=== PATIENT | female | born 1945 | race Caucasian/White ===

== ENCOUNTER 2016-06-04 | Outpatient (CLI) | payer MEDICARE, OTHER | END 2016-06-04 06:06 | disposition short-term general hospital (02) | DX: R07.9 Chest pain, unspecified (principal) | CPT/HCPCS: A0425; A0427 ==

== ENCOUNTER 2016-06-25 09:50 | Outpatient (CLI) | payer MEDICARE, OTHER | END 2016-06-25 09:51 | disposition home or self-care (01) | DX: Z95.2 Presence of prosthetic heart valve (principal) ==

== ENCOUNTER 2016-07-10 09:31 | Outpatient (CLI) | payer MEDICARE, OTHER | END 2016-07-10 09:32 | disposition home or self-care (01) | DX: I48.1 Persistent atrial fibrillation (principal); I48.0 Paroxysmal atrial fibrillation ==

== ENCOUNTER 2016-07-15 08:56 | Outpatient (CLI) | payer MEDICARE, OTHER | END 2016-07-15 08:57 | disposition critical access hospital (66) | DX: R07.89 Other chest pain (principal) | CPT/HCPCS: A0425; A0427 ==

== ENCOUNTER 2016-07-15 09:06 | Emergency (ER) | payer MEDICARE, OTHER | END 2016-07-15 11:05 | disposition home or self-care (01) | DX: R07.89 Other chest pain (principal); M54.2 Cervicalgia; I10 Essential (primary) hypertension; I25.10 Atherosclerotic heart disease of native coronary artery without angina pectoris; Z95.2 Presence of prosthetic heart valve; Z79.01 Long term (current) use of anticoagulants; I25.2 Old myocardial infarction; Z95.5 Presence of coronary angioplasty implant and graft ==

== ENCOUNTER 2016-07-16 09:58 | Outpatient (CLI) | payer MEDICARE, OTHER | END 2016-07-16 09:59 | disposition home or self-care (01) | DX: I48.0 Paroxysmal atrial fibrillation (principal) ==

== ENCOUNTER 2016-07-23 08:07 | Outpatient (CLI) | payer MEDICARE, OTHER | END 2016-07-23 08:08 | disposition home or self-care (01) | DX: I48.0 Paroxysmal atrial fibrillation (principal) ==

== ENCOUNTER 2016-08-01 08:33 | Outpatient (CLI) | payer MEDICARE, OTHER | END 2016-08-01 08:34 | disposition home or self-care (01) | DX: I48.0 Paroxysmal atrial fibrillation (principal) ==

== ENCOUNTER 2016-08-08 08:30 | Outpatient (CLI) | payer MEDICARE, OTHER | END 2016-08-08 08:31 | disposition home or self-care (01) | DX: I48.0 Paroxysmal atrial fibrillation (principal) ==

== ENCOUNTER 2016-08-22 08:22 | Outpatient (CLI) | payer MEDICARE, OTHER | END 2016-08-22 08:23 | disposition home or self-care (01) | DX: I48.0 Paroxysmal atrial fibrillation (principal) ==

== ENCOUNTER 2016-09-27 13:02 | Outpatient (CLI) | payer MEDICARE, OTHER ==
[2016-09-27 18:54] LABS: BASOPHILS % (AUTO) 0.5 %; EOSINOPHILS % (AUTO) 0.3 %; HCT - HEMATOCRIT 36.3 % (37.0-47.0); HGB - HEMOGLOBIN 11.9 g/dL (12.0-16.0); LYMPHOCYTES # (AUTO) 0.9 10^3/uL (1.5-3.5); LYMPHOCYTES % (AUTO) 9.9 %; MEAN CORPUSCULAR HEMOGLOBIN 27.7 pg (27.0-31.0); MEAN CORPUSCULAR HGB CONC 32.8 g/dL (32.0-36.0); MEAN CORPUSCULAR VOLUME 84.6 fL (81.0-99.0); MEAN PLATELET VOLUME 8.8 fL (7.9-10.8); MONOCYTES # (AUTO) 0.6 10^3/uL (0.0-1.0); MONOCYTES % (AUTO) 7.3 %; NEUTROPHILS # (AUTO) 7.3 10^3/uL (1.5-6.6); NUCLEATED RED BLOOD CELLS AUTO 0.1 /100WBC; RED CELL DISTRIBUTION WIDTH 18.3 % (12.0-15.0); UNCORRECTED WHITE BLOOD COUNT 8.9 x10^3/uL; WHITE BLOOD COUNT 8.9 x10^3/uL (4.8-10.8)
[2016-09-27 19:15] LABS: HEMOGLOBIN A1C 0.52 g/dL
[2016-09-27 19:28] LABS: ALBUMIN/GLOBULIN RATIO 0.9 (1.0-2.2); BILIRUBIN,TOTAL 1.2 mg/dL (0.2-1.0); BUN - BLOOD UREA NITROGEN 23 mg/dL (6-20); CALCIUM 9.2 mg/dL (8.5-10.3); CARBON DIOXIDE - CO2 29 mmol/L (21-32); CHLORIDE 100 mmol/L (101-111); CHOL/HDL RATIO 2.7 (<4.4); CHOLESTEROL 182 mg/dL; GFR - MDRD 55 (>89); GLUCOSE 117 mg/dL (70-100); HDL CHOLESTEROL 68 mg/dL; LDL/HDL RATIO 1.5 (<4.4); POTASSIUM 3.6 mmol/L (3.5-5.0); SODIUM 138 mmol/L (135-145); TOTAL PROTEIN 7.5 g/dL (6.7-8.2); TRIGLYCERIDES 73 mg/dL; VLDL CHOLESTEROL 15 mg/dL
[2016-09-27 19:44] LABS: INR 1.1 (0.8-1.2); PT - PROTHROMBIN TIME 12.7 secs (9.9-12.6)
== END 2016-09-27 13:03 | disposition home or self-care (01) ==
LOC: LAB.WCP 13:02
PROVIDERS: ATTEND Family Medicine
DX: E78.5 Hyperlipidemia, unspecified (principal); I48.0 Paroxysmal atrial fibrillation; R73.01 Impaired fasting glucose; I10 Essential (primary) hypertension
CPT/HCPCS: 36415; 80053; 80061; 82043; 83036; 84443; 85025; 85610

== ENCOUNTER 2016-10-08 07:00 | Outpatient (CLI) | payer MEDICARE, OTHER | END 2016-10-08 07:01 | disposition home or self-care (01) | LOC: LAB.WCP 07:00 | PROVIDERS: ATTEND Family Medicine | DX: R73.01 Impaired fasting glucose (principal) | CPT/HCPCS: 82043 ==

== ENCOUNTER 2017-03-26 10:19 | Outpatient (CLI) | payer MEDICARE, OTHER ==
[2017-03-26 14:05] LABS: BASOPHILS % (AUTO) 0.6 %; EOSINOPHILS # (AUTO) 0.2 10^3/uL (0.0-0.7); EOSINOPHILS % (AUTO) 2.8 %; HCT - HEMATOCRIT 37.4 % (37.0-47.0); HGB - HEMOGLOBIN 12.9 g/dL (12.0-16.0); LYMPHOCYTES # (AUTO) 1.3 10^3/uL (1.5-3.5); LYMPHOCYTES % (AUTO) 22.2 %; MEAN CORPUSCULAR HEMOGLOBIN 30.9 pg (27.0-31.0); MEAN CORPUSCULAR HGB CONC 34.5 g/dL (32.0-36.0); MEAN CORPUSCULAR VOLUME 89.7 fL (81.0-99.0); MEAN PLATELET VOLUME 9.4 fL (7.9-10.8); MONOCYTES # (AUTO) 0.5 10^3/uL (0.0-1.0); MONOCYTES % (AUTO) 8.3 %; NEUTROPHILS % (AUTO) 66.1 %; RED BLOOD COUNT 4.17 10^6/uL (4.20-5.40); RED CELL DISTRIBUTION WIDTH 14.4 % (12.0-15.0); UNCORRECTED WHITE BLOOD COUNT 6.1 x10^3/uL; WHITE BLOOD COUNT 6.1 x10^3/uL (4.8-10.8)
[2017-03-26 14:15] LABS: ALBUMIN/GLOBULIN RATIO 1.1 (1.0-2.2); BILIRUBIN,TOTAL 0.8 mg/dL (0.2-1.0); CALCIUM 9.3 mg/dL (8.5-10.3); CREATININE 1.1 mg/dL (0.4-1.0); POTASSIUM 4.4 mmol/L (3.5-5.0); TOTAL PROTEIN 6.9 g/dL (6.7-8.2)
[2017-03-26 14:17] LABS: HEMOGLOBIN A1C 0.51 g/dL
== END 2017-03-26 10:20 | disposition home or self-care (01) ==
LOC: LAB.WCP 10:19
PROVIDERS: ATTEND Family Medicine
DX: R73.01 Impaired fasting glucose (principal); I25.10 Atherosclerotic heart disease of native coronary artery without angina pectoris
CPT/HCPCS: 36415; 80053; 83036; 85025

== ENCOUNTER 2017-08-12 10:42 | Outpatient (CLI) | payer MEDICARE, OTHER | END 2017-08-12 10:43 | disposition home or self-care (01) | LOC: LAB 10:42 | PROVIDERS: ATTEND Internal Medicine Cardiovascular Disease | DX: I10 Essential (primary) hypertension (principal) | CPT/HCPCS: 36415; 80048 ==

== ENCOUNTER 2017-09-30 10:29 | Outpatient (CLI) | payer MEDICARE, OTHER ==
[2017-09-30 12:59] LABS: HB2 TOTAL 14.9 g/dL; HEMOGLOBIN A1C 0.55 g/dL; HEMOGLOBIN A1C % 5.5 % (4.6-6.2)
[2017-09-30 13:03] LABS: CHOL/HDL RATIO 2.6 (<4.4); CHOLESTEROL 197 mg/dL; HDL CHOLESTEROL 75 mg/dL; LDL CHOLESTEROL,CALCULATED 103 mg/dL; LDL/HDL RATIO 1.4 (<4.4); VLDL CHOLESTEROL 19 mg/dL
== END 2017-09-30 10:30 ==
LOC: LAB.WCP 10:29
PROVIDERS: ATTEND Family Medicine
DX: E78.5 Hyperlipidemia, unspecified (principal); R73.01 Impaired fasting glucose
CPT/HCPCS: 36415; 80061; 83036; 83721

== ENCOUNTER 2018-04-18 09:50 | Outpatient (CLI) | payer MEDICARE, OTHER ==
[2018-04-18 13:29] LABS: BASOPHILS % (AUTO) 0.6 %; EOSINOPHILS # (AUTO) 0.2 10^3/uL (0.0-0.7); EOSINOPHILS % (AUTO) 2.5 %; HGB - HEMOGLOBIN 13.2 g/dL (12.0-16.0); LYMPHOCYTES # (AUTO) 1.3 10^3/uL (1.5-3.5); LYMPHOCYTES % (AUTO) 19.3 %; MEAN CORPUSCULAR HEMOGLOBIN 30.9 pg (27.0-31.0); MEAN CORPUSCULAR HGB CONC 34.1 g/dL (32.0-36.0); MEAN CORPUSCULAR VOLUME 90.8 fL (81.0-99.0); MEAN PLATELET VOLUME 9.7 fL (7.9-10.8); MONOCYTES # (AUTO) 0.5 10^3/uL (0.0-1.0); MONOCYTES % (AUTO) 8.2 %; NEUTROPHILS # (AUTO) 4.6 10^3/uL (1.5-6.6); NEUTROPHILS % (AUTO) 69.4 %; PLT - PLATELET COUNT 189 10^3/uL (130-450); RED BLOOD COUNT 4.27 10^6/uL (4.20-5.40); RED CELL DISTRIBUTION WIDTH 14.1 % (12.0-15.0); WHITE BLOOD COUNT 6.7 x10^3/uL (4.8-10.8)
[2018-04-18 14:28] LABS: ALBUMIN 3.9 g/dL (3.2-5.5); ALBUMIN/GLOBULIN RATIO 1.3 (1.0-2.2); ALKALINE PHOSPHATASE 98 IU/L (42-121); ALT ALANINE AMINOTRANSFERASE 20 IU/L (10-60); AST ASPARTATE AMINOTRANSFERASE 27 IU/L (10-42); BILIRUBIN,TOTAL 0.9 mg/dL (0.2-1.0); BUN - BLOOD UREA NITROGEN 34 mg/dL (6-20); CALCIUM 9.2 mg/dL (8.5-10.3); CARBON DIOXIDE - CO2 25 mmol/L (21-32); CHLORIDE 102 mmol/L (101-111); CHOL/HDL RATIO 2.3 (<4.4); CHOLESTEROL 159 mg/dL; CREATININE 0.5 mg/dL (0.4-1.0); GFR - MDRD 121 (>89); GLUCOSE 114 mg/dL (70-100); HDL CHOLESTEROL 68 mg/dL; LDL CHOLESTEROL,CALCULATED 76 mg/dL; LDL/HDL RATIO 1.1 (<4.4); SODIUM 137 mmol/L (135-145); TOTAL PROTEIN 6.9 g/dL (6.7-8.2); VLDL CHOLESTEROL 15 mg/dL
== END 2018-04-18 23:59 | disposition home or self-care (01) ==
LOC: LAB.WCP 09:50
PROVIDERS: ATTEND Family Medicine
DX: I10 Essential (primary) hypertension (principal)
CPT/HCPCS: 36415; 80053; 80061; 83721; 84443; 85025

== ENCOUNTER 2018-09-10 08:37 | Outpatient (CLI) | payer MEDICARE, OTHER ==
[2018-09-10] MEDS ORDERED: REGADENOSON 0.4 MG/5 ML SYRINGE IVP ONE ×2 (10:41→11:57)
[2018-09-10] MEDS ORDERED: AMINOPHYLLINE 250 MG/10 ML VIAL ONE (10:42)
--- NOTE | 2018-09-10 13:09 | CARDIAC PROCEDURE NOTE ---
DATE OF SERVICE: 09/10/2018 Physician: Shikha Adhikari MD, [facility] INDICATION: Chest pain. CARDIAC RISK FACTORS: Advanced age, postmenopausal status, hypertension, hyperlipidemia, family history of heart disease. Patient describes a history of "prior heart attack" and has coronary stents. PROCEDURE: The test was ordered as a Persantine stress test. I spoke to the ordering provider, Dr. Cheng, on 09/03/2018 and he indicated that Persantine was an error, and that he wanted a Lexiscan stress test. Therefore, a Lexiscan pharmaceutical stress test was performed per his verbal order, along with nuclear myocardial perfusion imaging. RESTING HEART RATE: 52. PEAK HEART RATE: 66. RESTING BLOOD PRESSURE: 150/65. PEAK BLOOD PRESSURE: 140/60. Lexiscan was infused per protocol. She had brief flushing, brief shortness of breath and then developed chest tightness and jaw pain (she said this was similar to before she had coronary stents). These symptoms resolved spontaneously in less than a minute. Patient was given oral caffeine after recovery. RESTING EKG: Sinus bradycardia, left atrial enlargement, LVH voltage with small inferior Q-waves. EKG AT PEAK: New ST segment depression with biphasic T waves in leads 2, 3, aVF, and V4 through V5. These changes returned to baseline after 5 minutes. SUMMARY 1. Abnormal resting EKG. 2. Patient did develop chest pain with jaw pain briefly with this pharmaceutical stress agent. 3. EKG changes are suggestive of ischemia with pharmaceutical stress. 4. Nuclear images reported separately. cc: Alcon Allison M.D. Adelso Cheng M.D. TD: 09/10/2018 12:55 [facility]
--- NOTE | 2018-09-11 08:15 | Nuclear Medicine Report ---
Reason: CHEST PAIN Procedure Date: 09/10/2018 Accession Number: [id number] / [id number] Procedure: NM - Myocardial Perfusion STR/RST CPT Code: FULL RESULT: EXAM: SINGLE-ISOTOPE PHARMACOLOGICAL STRESS TEST WITH REGADENOSON. SINGLE-ISOTOPE AND TWO-DAY REST/STRESS MYOCARDIAL PERFUSION SCANS WITH TOMOGRAPHIC IMAGING, QUANTITATIVE ANALYSIS, WALL MOTION ANALYSIS AND CALCULATION OF EJECTION FRACTION. EXAM DATE: 09/10/2018 01:32 PM. CLINICAL HISTORY: CHEST PAIN. COMPARISON: None available. TECHNIQUE: A pharmacological stress was performed with the infusion of 0.4 mg regadenoson per protocol. According to protocol, 10.9 mCi of Tc-99m sestamibi was injected for stress myocardial perfusion scan. Motion correction was applied when appropriate. The following day after the intravenous administration of 40.7 mCi of Tc-99m sestamibi, a rest myocardial perfusion scan was done with tomography. Motion correction was applied when appropriate. Gated tomographic images were obtained for wall motion analysis and computation of left ventricular ejection fraction. FINDINGS: There is a large, moderate to severe fixed defect in the anterolateral, lateral, and inferolateral secobar. There is a small mild fixed defect in the anteroseptal wall. No convincing significant reversible perfusion defects. Computer analysis. Summed stress score 15 Summed rest score 15 Summed difference score 0 Wall motion analysis demonstrates hypokinesis of the inferior wall near the base. The left ventricular end-diastolic volume is 169 cc. The left ventricular end-systolic volume is 89 cc. The left ventricular ejection fraction is calculated to be 48%. IMPRESSION: 1. Fixed defect involving the anterolateral, lateral, and inferolateral escobar. No convincing significant reversible perfusion defects. 2. Left ventricular ejection fraction of 48%. 3. Hypokinesis of the inferior wall near the base. 4. Based on computer analysis, severely abnormal study with no ischemia. Please correlate findings with stress ECG tracings and procedure notes. RADIA
== END 2018-09-10 08:38 | disposition home or self-care (01) ==
LOC: DI 08:37
PROVIDERS: ATTEND Internal Medicine Cardiovascular Disease
DX: R07.9 Chest pain, unspecified (principal); R94.31 Abnormal electrocardiogram [ECG] [EKG]; R94.39 Abnormal result of other cardiovascular function study; I10 Essential (primary) hypertension; E78.5 Hyperlipidemia, unspecified; Z82.49 Family history of ischemic heart disease and other diseases of the circulatory system; Z95.5 Presence of coronary angioplasty implant and graft
CPT/HCPCS: 78452; 93017; A9500; J2785

== ENCOUNTER 2018-11-27 09:54 | Outpatient (CLI) | payer MEDICARE, OTHER ==
[2018-11-27 12:53] LABS: BASOPHILS % (AUTO) 0.6 %; EOSINOPHILS # (AUTO) 0.2 10^3/uL (0.0-0.7); HGB - HEMOGLOBIN 12.3 g/dL (12.0-16.0); LYMPHOCYTES # (AUTO) 1.3 10^3/uL (1.5-3.5); LYMPHOCYTES % (AUTO) 20.5 %; MEAN CORPUSCULAR HEMOGLOBIN 30.2 pg (27.0-31.0); MEAN CORPUSCULAR HGB CONC 32.5 g/dL (32.0-36.0); MEAN CORPUSCULAR VOLUME 93.1 fL (81.0-99.0); MEAN PLATELET VOLUME 11.7 fL (7.9-10.8); MONOCYTES # (AUTO) 0.6 10^3/uL (0.0-1.0); MONOCYTES % (AUTO) 8.9 %; NEUTROPHILS # (AUTO) 4.2 10^3/uL (1.5-6.6); NEUTROPHILS % (AUTO) 66.7 %; PLT - PLATELET COUNT 190 10^3/uL (130-450); RED BLOOD COUNT 4.07 10^6/uL (4.20-5.40); RED CELL DISTRIBUTION WIDTH 13.6 % (12.0-15.0); WHITE BLOOD COUNT 6.3 x10^3/uL (4.8-10.8)
[2018-11-27 13:20] LABS: HB2 TOTAL 13.1 g/dL; HEMOGLOBIN A1C 0.51 g/dL; HEMOGLOBIN A1C % 5.7 % (4.6-6.2)
[2018-11-27 13:23] LABS: ALBUMIN/GLOBULIN RATIO 1.2 (1.0-2.2); ALKALINE PHOSPHATASE 85 IU/L (42-121); ALT ALANINE AMINOTRANSFERASE 18 IU/L (10-60); AST ASPARTATE AMINOTRANSFERASE 28 IU/L (10-42); BILIRUBIN,TOTAL 0.9 mg/dL (0.2-1.0); BUN - BLOOD UREA NITROGEN 32 mg/dL (6-20); CALCIUM 9.2 mg/dL (8.5-10.3); CARBON DIOXIDE - CO2 23 mmol/L (21-32); CHLORIDE 107 mmol/L (101-111); CHOL/HDL RATIO 2.8 (<4.4); CHOLESTEROL 191 mg/dL; CREATININE 1.3 mg/dL (0.4-1.0); GFR - MDRD 40 (>89); GLUCOSE 110 mg/dL (70-100); HDL CHOLESTEROL 69 mg/dL; LDL CHOLESTEROL,CALCULATED 108 mg/dL; LDL/HDL RATIO 1.6 (<4.4); SODIUM 139 mmol/L (135-145); TOTAL PROTEIN 7.4 g/dL (6.7-8.2); VLDL CHOLESTEROL 14 mg/dL
== END 2018-11-27 23:59 | disposition home or self-care (01) ==
LOC: LAB.WCP 09:54
PROVIDERS: ATTEND Family Medicine
DX: I10 Essential (primary) hypertension (principal); E78.5 Hyperlipidemia, unspecified; R73.01 Impaired fasting glucose
CPT/HCPCS: 36415; 80053; 80061; 83036; 83721; 84443; 85025

== ENCOUNTER 2018-12-04 09:04 | Outpatient (CLI) | payer MEDICARE, OTHER ==
--- NOTE | 2018-12-05 14:01 | XRAY Report ---
Reason: BILATERAL HIP PAIN Procedure Date: 12/04/2018 Accession Number: [id number] / [id number] Procedure: WCP - Hip BILAT CPT Code: FULL RESULT: EXAM: BILATERAL HIP RADIOGRAPHY EXAM DATE: 12/04/2018 09:39 AM. CLINICAL HISTORY: BILATERAL HIP PAIN. COMPARISON: None. TECHNIQUE: 2 views each. FINDINGS: Bones: No fractures or bone lesions. Sacrum appears intact. SI joints appear normal. Right Hip: Asymmetric moderate degenerative joint space narrowing with moderate marginal osteophyte of the femoral head and acetabulum. No appreciable subchondral sclerosis or collapse. Left Hip: Minor joint space narrowing and minor marginal osteophyte. Soft Tissues: Normal. No soft tissue swelling. IMPRESSION: Bilateral hip osteoarthritis worse on the right. No fracture appreciated. RADIA
== END 2018-12-04 23:59 | disposition home or self-care (01) ==
LOC: DI.WCP 09:04 → EDSTATUS 13:16 → DI.WCP 23:59
PROVIDERS: ATTEND Family Medicine
DX: M16.0 Bilateral primary osteoarthritis of hip (principal)
CPT/HCPCS: 73521

== ENCOUNTER 2018-12-23 11:27 | Outpatient (CLI) | payer MEDICARE, OTHER ==
[2018-12-23] MEDS ORDERED: IOVERSOL 320 50 ML VIAL ONE (11:44)
[2018-12-23] MEDS ORDERED: IOVERSOL 320 100 ML VIAL IVP ONE ×3 (11:44→16:38)
[2018-12-23] MEDS ORDERED: IOVERSOL 320 50 ML VIAL PO ONE (16:38)
--- NOTE | 2018-12-25 04:46 | CT Report ---
Reason: ABDOMINAL PAIN LUQ Procedure Date: 12/23/2018 Accession Number: [id number] / [id number] Procedure: CT - Abdomen/Pelvis W CPT Code: FULL RESULT: EXAM: CT ABDOMEN AND PELVIS EXAM DATE: 12/23/2018 01:06 PM. CLINICAL HISTORY: ABDOMINAL PAIN LUQ. COMPARISONS: None. TECHNIQUE: Routine helical CT imaging was performed through the abdomen and pelvis. IV contrast: OPTI 320 100ML. Enteric contrast: No. Reconstructions: Coronal and sagittal. In accordance with CT protocol optimization, one or more of the following dose reduction techniques were utilized for this exam: automated exposure control, adjustment of mA and/or KV based on patient size, or use of iterative reconstructive technique. FINDINGS: Lung Bases: The lung bases are clear. The heart is enlarged. Liver: Normal. No masses. Gallbladder/Bile Ducts: Unremarkable. Spleen: Normal. Pancreas: Normal. Adrenal Glands: Normal. Kidneys: Normal. No masses or hydronephrosis. There are a few small bilateral renal cysts. Peritoneal Cavity/Bowel: Normal. No free fluid, free air or adenopathy. No masses or acute inflammatory process. The appendix is well visualized and normal. Pelvic Organs: The uterus is atrophic. There are no adnexal masses. Vasculature: There is fusiform dilatation of the abdominal aorta. There are prominent atherosclerotic vascular calcifications. In the mid abdominal aorta there is mild fusiform dilatation at the level of the renal arteries. Maximal diameter is approximately 22 mm. In the infrarenal abdominal aorta just above the bifurcation there is fusiform dilatation of the aorta with a maximal diameter measuring 32 mm. Prominent atherosclerotic vascular patients extend into the iliac arteries. Bones: No significant abnormality. Other: None. IMPRESSION: 1. Cardiomegaly. 2. Advanced atherosclerotic vascular calcification with fusiform dilatation of the abdominal aorta at the level of the renal arteries and in the infrarenal region of the aorta. RADIA
== END 2018-12-23 11:28 | disposition home or self-care (01) ==
LOC: DI 11:27
PROVIDERS: ATTEND Family Medicine
DX: R10.12 Left upper quadrant pain (principal); I51.7 Cardiomegaly; I77.811 Abdominal aortic ectasia
CPT/HCPCS: 74177; Q9967

== ENCOUNTER 2019-02-03 11:28 | Emergency (ER) | payer MEDICARE, OTHER ==
[2019-02-03] MEDS ORDERED: PROCAINAMIDE 1,000 MG in SODIUM CHLORIDE 0.9% 240 ML IV STA (12:16)
[2019-02-03] MEDS ORDERED: METOPROLOL 5 MG/5 ML VIAL IVP STA (12:16)
--- NOTE | 2019-02-03 12:18 | ED Physician Documentation ---
PD HPI CHEST PAIN - Stated complaint Stated Complaint: HEART RACING - Chief complaint Chief Complaint: Cardiac - History obtained from History obtained from: Patient - History of Present Illness Timing - onset: Other (This is a 74-year-old woman with history of prosthetic aortic valve, bovine. Not anticoagulated. She says she has a history of A. fib but it has been very fleeting. Since yesterday morning she has had a sensation of irregular heartbeat and something going on her chest with decreased energy. There is no pedal edema, shortness of breath, calf pain, or chest pain.) Review of Systems Ten Systems: 10 systems reviewed and negative Constitutional: reports: Fatigue. denies: Fever, Chills Cardiac: reports: Palpitations. denies: Chest pain / pressure, Pedal edema, Calf pain Respiratory: denies: Dyspnea, Cough GI: denies: Abdominal Pain, Nausea PD PAST MEDICAL HISTORY - Past Medical History Past Medical History: Yes Cardiovascular: Hypertension, High cholesterol, Coronary artery disease, [place], Atrial fibrillation - Past Surgical History Past Surgical History: Yes Cardiovascular: Coronary stent, Valve replacement - Present Medications Home Medications: Ambulatory Orders Medication Instructions Recorded Confirmed Atorvastatin Calcium [Lipitor] 80 mg PO DAILY 11/06/13 02/03/19 Losartan [Cozaar] 25 mg PO DAILY 11/06/13 02/03/19 Amitriptyline [Elavil] 25 mg PO HS #30 tablet 07/15/16 02/03/19 Furosemide 40 mg PO DAILY 07/15/16 02/03/19 Potassium Chloride 20 meq PO DAILY 07/15/16 02/03/19 Aspirin 80 mg PO DAILY 02/03/19 02/03/19 Metoprolol Succinate [Toprol Xl] 50 mg PO DAILY 02/03/19 02/03/19 - Allergies Allergies/Adverse Reactions: Allergies Allergy/AdvReac Type Severity Reaction Status Date / Time No Known Drug Allergies Allergy Verified 11/06/13 01:49 - Social History Does the pt smoke?: No Smoking Status: Never smoker Does the pt drink ETOH?: No - Immunizations Immunizations are current?: Yes PD ED PE NORMAL - Vitals Vital signs reviewed: Yes - General General: Alert and oriented X 3, No acute distress - HEENT HEENT: PERRL, EOMI - Neck Neck: Supple, no meningeal sign, No bony TTP - Cardiac Cardiac: Other (Irregularly irregular without murmur) - Respiratory Respiratory: No respiratory distress, Clear bilaterally - Abdomen Abdomen: Soft, Non tender - Back Back: No CVA TTP, No spinal TTP - Derm Derm: Normal color, Warm and dry - Extremities Extremities: No edema, No calf tenderness / cord - Neuro Neuro: Alert and oriented X 3, Normal speech Results - Vitals Vitals: Vital Signs - 24 hr 02/03/19 02/03/19 02/03/19 11:37 12:11 12:42 Temperature 36.6 C Heart Rate 102 H 96 97 Respiratory 18 16 15 Rate Blood Pressure 130/102 H 153/97 H 136/83 H O2 Saturation 93 94 94 02/03/19 02/03/19 02/03/19 13:26 14:10 14:29 Temperature Heart Rate 87 86 51 L Respiratory 15 18 26 H Rate Blood Pressure 138/85 H 125/75 143/67 H O2 Saturation 98 100 96 02/03/19 02/03/19 02/03/19 14:34 14:38 14:42 Temperature Heart Rate 53 L 55 L 51 L Respiratory 19 19 18 Rate Blood Pressure 142/70 H 142/70 H 137/62 H O2 Saturation 99 100 100 Oxygen O2 Source Room air - EKG (time done) 1141 Rate: Rate (enter#) (105) Rhythm: Atrial fibrillation [place]: Normal QRS: Normal Ischemia: Other (Inferior and lateral Q waves, no ST elevation or depression. Computer is calling prolonged QT but it actually looks fairly short to me.) 1438 Rate: Rate (enter#) (52) Rhythm: NSR, LAE Intervals: Normal [place] QRS: LVH Ischemia: Q waves (inferior) Computer interpretation: Agree with computer - Labs Labs: Laboratory Tests 02/03/19 02/03/19 02/03/19 12:23 12:23 12:23 WBC 8.3 RBC 4.19 L Hgb 13.0 Hct 39.0 MCV 93.1 MCH 31.0 MCHC 33.3 RDW 14.0 Plt Count 200 MPV 10.8 Neut # (Auto) 6.5 Lymph # (Auto) 1.1 L [place] # (Auto) 0.4 Eos # (Auto) 0.1 Baso # (Auto) 0.0 Absolute Nucleated RBC 0.00 Nucleated RBC % 0.0 Sodium 140 Potassium 4.2 Chloride 106 Carbon Dioxide 24 Anion Gap 10.0 BUN 28 H Creatinine 1.1 H Estimated GFR (MDRD) 48 L Glucose 137 H Calcium 9.2 Total Bilirubin 0.9 AST 28 ALT 21 Alkaline Phosphatase 80 Troponin I High Sens 21.1 H* Total Protein 7.3 Albumin 3.9 Globulin 3.4 Albumin/Globulin Ratio 1.1 Lipase 41 TSH 02/03/19 02/03/19 12:23 14:28 WBC RBC Hgb Hct MCV MCH MCHC RDW Plt Count MPV Neut # (Auto) Lymph # (Auto) Yates # (Auto) Eos # (Auto) Baso # (Auto) Absolute Nucleated RBC Nucleated RBC % Sodium Potassium Chloride Carbon Dioxide Anion Gap BUN Creatinine Estimated GFR (MDRD) Glucose Calcium Total Bilirubin AST ALT Alkaline Phosphatase Troponin I High Sens 21.4 H* Total Protein Albumin Globulin Albumin/Globulin Ratio Lipase TSH 2.79 Procedures - Procedural sedation Sedation prep: Informed consent, Time out completed, Last meal (730am), PE performed, AHA 2 - mild disease Sedation medications: propofol (50mg IVP x1) Patient status during sedation: Responds to tactile, Vitals remained stable, Maintained airway, Recovered uneventfully Sedation recovery: Recovered uneventfully Time in sedation (Minutes): 10 - Cardioversion 1 Time of attempt: 14:30 Risks, benefits, alternatives explained to: Pt Prep: IV, O2, daycare assistant, Airway equip Meds: Propofol (50mg IVP x1) CS via: Pads, AP approach Sync: Biphasic (120j x1) Post cardioversion rhythm: NSR Performed by: ED MD PD MEDICAL DECISION MAKING - ED course ED course: 74-year-old woman with symptomatic atrial fibrillation since yesterday morning, less than 48 hours. Will trial medical management with IV beta-blockers and procainamide. This resulted in rate control but not rhythm control. She consented for electrical cardioversion and cardioverted on the first shock. Departure - Departure Disposition: 01 Home, Self Care Clinical Impression: Atrial fibrillation Qualifiers: Atrial fibrillation type: paroxysmal Qualified Code(s): I48.0 - Paroxysmal atrial fibrillation Condition: Good Record reviewed to determine appropriate education?: Yes Instructions: Atrial Fibrillation Dc Comments: Please copy chart to Adelso Cheng, cardiology at the [facility]. Follow-up with Dr. Cheng, next available appointment. Take the copies of the EKGs from before and after we shocked you with you. You can let him know that we trialed IV beta-blockers and a procainamide drip without cardioversion, but you were successfully cardioverted using biphasic 120 J with sedation. He may want to start you on anticoagulants. Take a baby aspirin a day until then. Discharge Date/Time: 02/03/19 15:26
[2019-02-03 12:38] LABS: BASOPHILS % (AUTO) 0.5 %; EOSINOPHILS # (AUTO) 0.1 10^3/uL (0.0-0.7); EOSINOPHILS % (AUTO) 1.3 %; LYMPHOCYTES # (AUTO) 1.1 10^3/uL (1.5-3.5); LYMPHOCYTES % (AUTO) 13.6 %; MEAN CORPUSCULAR HGB CONC 33.3 g/dL (32.0-36.0); MEAN CORPUSCULAR VOLUME 93.1 fL (81.0-99.0); MEAN PLATELET VOLUME 10.8 fL (7.9-10.8); MONOCYTES # (AUTO) 0.4 10^3/uL (0.0-1.0); MONOCYTES % (AUTO) 5.3 %; NEUTROPHILS # (AUTO) 6.5 10^3/uL (1.5-6.6); NEUTROPHILS % (AUTO) 79.1 %; PLT - PLATELET COUNT 200 10^3/uL (130-450); RED BLOOD COUNT 4.19 10^6/uL (4.20-5.40); WHITE BLOOD COUNT 8.3 x10^3/uL (4.8-10.8)
[2019-02-03 12:52] LABS: ALBUMIN 3.9 g/dL (3.2-5.5); ALBUMIN/GLOBULIN RATIO 1.1 (1.0-2.2); BILIRUBIN,TOTAL 0.9 mg/dL (0.2-1.0); CALCIUM 9.2 mg/dL (8.5-10.3); CREATININE 1.1 mg/dL (0.4-1.0); TOTAL PROTEIN 7.3 g/dL (6.7-8.2)
[2019-02-03] MEDS ORDERED: PROPOFOL 200 MG/20 ML VIAL IVP STA (14:08)
[2019-02-03 14:43] VITALS: BP 137/62
== END 2019-02-03 15:26 | disposition home or self-care (01) ==
LOC: ED 11:28
DX: I48.0 Paroxysmal atrial fibrillation (principal); Z95.2 Presence of prosthetic heart valve; I25.10 Atherosclerotic heart disease of native coronary artery without angina pectoris; Z95.5 Presence of coronary angioplasty implant and graft; I10 Essential (primary) hypertension; Z79.82 Long term (current) use of aspirin
CPT/HCPCS: 36415; 80053; 83690; 84443; 84484; 85025; 92960; 93005; 96365; 96375; 99152; 99284; 99285; J2690; 94770

== ENCOUNTER 2019-05-20 10:52 | Outpatient (CLI) | payer MEDICARE, OTHER ==
[2019-05-20 11:45] LABS: CREATININE 1.2 mg/dL (0.4-1.0)
== END 2019-05-20 10:53 | disposition home or self-care (01) ==
LOC: LAB 10:52
PROVIDERS: ATTEND Internal Medicine Cardiovascular Disease
DX: I10 Essential (primary) hypertension (principal)
CPT/HCPCS: 36415; 80048

== ENCOUNTER 2019-08-27 08:00 | Outpatient (CLI) | payer MEDICARE, OTHER ==
[2019-08-27 13:40] LABS: CALCIUM 9.1 mg/dL (8.5-10.3); CREATININE 1.2 mg/dL (0.4-1.0)
== END 2019-08-27 23:59 | disposition home or self-care (01) ==
LOC: LAB.WCP 08:00
PROVIDERS: ATTEND Internal Medicine Cardiovascular Disease
DX: I25.2 Old myocardial infarction (principal); Z95.2 Presence of prosthetic heart valve
CPT/HCPCS: 36415; 80048

== ENCOUNTER 2020-03-11 10:34 | Outpatient (CLI) | payer MEDICARE, OTHER ==
[2020-03-11 11:46] LABS: BUN - BLOOD UREA NITROGEN 33 mg/dL (6-20); CALCIUM 9.3 mg/dL (8.5-10.3); CARBON DIOXIDE - CO2 29 mmol/L (21-32); CHLORIDE 96 mmol/L (101-111); CHOL/HDL RATIO 2.6 (<4.4); CHOLESTEROL 163 mg/dL; CREATININE 1.4 mg/dL (0.4-1.0); GLUCOSE 130 mg/dL (70-100); HDL CHOLESTEROL 63 mg/dL; LDL CHOLESTEROL,CALCULATED 82 mg/dL; LDL/HDL RATIO 1.3 (<4.4); SODIUM 137 mmol/L (135-145); VLDL CHOLESTEROL 18 mg/dL
== END 2020-03-11 10:35 | disposition home or self-care (01) ==
LOC: LAB 10:34
PROVIDERS: ATTEND Internal Medicine Cardiovascular Disease
DX: I10 Essential (primary) hypertension (principal); I48.91 Unspecified atrial fibrillation
CPT/HCPCS: 36415; 80048; 80061; 83721

== ENCOUNTER 2020-04-25 16:45 | Outpatient (CLI) | payer MEDICARE, OTHER ==
[2020-04-25 18:33] LABS: BASOPHILS % (AUTO) 0.6 %; EOSINOPHILS # (AUTO) 0.2 10^3/uL (0.0-0.7); EOSINOPHILS % (AUTO) 2.5 %; HGB - HEMOGLOBIN 13.6 g/dL (12.0-16.0); LYMPHOCYTES # (AUTO) 1.4 10^3/uL (1.5-3.5); LYMPHOCYTES % (AUTO) 20.4 %; MEAN CORPUSCULAR HEMOGLOBIN 30.2 pg (27.0-31.0); MEAN CORPUSCULAR HGB CONC 32.4 g/dL (32.0-36.0); MEAN CORPUSCULAR VOLUME 93.3 fL (81.0-99.0); MEAN PLATELET VOLUME 11.4 fL (7.9-10.8); MONOCYTES # (AUTO) 0.5 10^3/uL (0.0-1.0); MONOCYTES % (AUTO) 6.9 %; NEUTROPHILS # (AUTO) 4.7 10^3/uL (1.5-6.6); NEUTROPHILS % (AUTO) 69.3 %; PLT - PLATELET COUNT 204 10^3/uL (130-450); RED CELL DISTRIBUTION WIDTH 13.7 % (12.0-15.0); WHITE BLOOD COUNT 6.8 x10^3/uL (4.8-10.8)
[2020-04-25 19:22] LABS: ALBUMIN 3.9 g/dL (3.2-5.5); ALBUMIN/GLOBULIN RATIO 1.1 (1.0-2.2); CALCIUM 9.4 mg/dL (8.5-10.3); CREATININE 1.5 mg/dL (0.4-1.0); TOTAL PROTEIN 7.5 g/dL (6.7-8.2)
[2020-04-25 20:09] LABS: HEMOGLOBIN A1c% 6.3 % (4.27-6.07)
== END 2020-04-25 16:46 | disposition home or self-care (01) ==
LOC: LAB.WCP 16:45
PROVIDERS: ATTEND Family Medicine
DX: E11.9 Type 2 diabetes mellitus without complications (principal)
CPT/HCPCS: 36415; 80053; 83036; 84443; 85025

== ENCOUNTER 2020-06-11 08:26 | Outpatient (CLI) | payer MEDICARE, OTHER ==
--- NOTE | 2020-06-11 12:18 | Ultrasound Report ---
PROCEDURE: Retroperitoneal Limited INDICATIONS: AAA TECHNIQUE: Real time scanning was performed of the aorta and iliac arteries, with image documentatio n. COMPARISON: Prior CT examinations, 12/23/2018, 11/27/2010 FINDINGS: Aorta: Proximal aortic diameter measures 2.5 x 2.2 cm. There is a mid abdominal aneurysm seen that measures 2.9 cm AP by 3.2 cm transversely. There is a distal abdominal aortic aneurysm seen that measures 4 7 m AP by 5 cm transversely. There i s thick mural thrombus seen that measures up to 1.9 cm. Iliac arteries: Right common iliac artery measures 1.2 x 1.1 cm. Left common iliac artery measures 1.4 x 1.2 cm. IMPRESSION: 2 areas of fusiform aneurysm seen involving the abdominal aorta, with the distal portion measuring up to 5 cm transversely and 4 cm AP. There is relatively prominent mural thrombus. When compared to the 2019 CT examination, the distal abdominal aortic aneurysm has slightly increased in size. Reviewed by: Arturo Smith MD on 06/11/2020 11:16 AM [facility] Approved by: Arturo Smith MD on 06/11/2020 11:16 AM [facility] Station ID: [id number]
== END 2020-06-11 08:27 | disposition home or self-care (01) ==
LOC: DI 08:26
PROVIDERS: ATTEND Family Medicine
DX: I71.4 Abdominal aortic aneurysm, without rupture (principal); I74.09 Other arterial embolism and thrombosis of abdominal aorta

== ENCOUNTER 2020-06-23 09:28 | Outpatient (CLI) | payer MEDICARE, OTHER ==
[2020-06-23 10:06] LABS: CHOL/HDL RATIO 2.7 (<4.4); CHOLESTEROL 165 mg/dL; HDL CHOLESTEROL 62 mg/dL; LDL CHOLESTEROL,CALCULATED 85 mg/dL; LDL/HDL RATIO 1.4 (<4.4); TRIGLYCERIDES 88 mg/dL; VLDL CHOLESTEROL 18 mg/dL
== END 2020-06-23 09:29 | disposition home or self-care (01) ==
LOC: LAB 09:28
PROVIDERS: ATTEND Internal Medicine Cardiovascular Disease
DX: I25.10 Atherosclerotic heart disease of native coronary artery without angina pectoris (principal)
CPT/HCPCS: 36415; 80061; 83721

== ENCOUNTER 2020-07-21 10:44 | Outpatient (CLI) | payer MEDICARE, OTHER ==
[2020-07-21 12:35] LABS: BASOPHILS # (AUTO) 0.1 10^3/uL (0.0-0.1); BASOPHILS % (AUTO) 0.7 %; EOSINOPHILS # (AUTO) 0.2 10^3/uL (0.0-0.7); EOSINOPHILS % (AUTO) 3.1 %; HCT - HEMATOCRIT 39.9 % (37.0-47.0); HGB - HEMOGLOBIN 13.1 g/dL (12.0-16.0); LYMPHOCYTES # (AUTO) 1.3 10^3/uL (1.5-3.5); MEAN CORPUSCULAR HEMOGLOBIN 31.2 pg (27.0-31.0); MEAN CORPUSCULAR HGB CONC 32.8 g/dL (32.0-36.0); MEAN PLATELET VOLUME 11.3 fL (7.9-10.8); MONOCYTES # (AUTO) 0.5 10^3/uL (0.0-1.0); MONOCYTES % (AUTO) 6.8 %; NEUTROPHILS # (AUTO) 5.1 10^3/uL (1.5-6.6); NEUTROPHILS % (AUTO) 71.3 %; PLT - PLATELET COUNT 197 10^3/uL (130-450); RED CELL DISTRIBUTION WIDTH 13.8 % (12.0-15.0); WHITE BLOOD COUNT 7.2 x10^3/uL (4.8-10.8)
[2020-07-21 12:37] LABS: CALCIUM 9.1 mg/dL (8.5-10.3); CREATININE 1.4 mg/dL (0.4-1.0); POTASSIUM 4.5 mmol/L (3.5-5.0)
[2020-07-21 12:38] LABS: ALBUMIN 3.8 g/dL (3.2-5.5); ALBUMIN/GLOBULIN RATIO 1.1 (1.0-2.2); TOTAL PROTEIN 7.4 g/dL (6.7-8.2)
[2020-07-21 13:37] LABS: ESTIMATED AVERAGE GLUCOSE 126 mg/dL (70-100)
== END 2020-07-21 10:45 | disposition home or self-care (01) ==
LOC: LAB 10:44
PROVIDERS: ATTEND Family Medicine
DX: E11.9 Type 2 diabetes mellitus without complications (principal)
CPT/HCPCS: 36415; 80053; 82043; 82570; 83036; 85025

== ENCOUNTER 2020-11-10 08:42 | Emergency (ER) | payer MEDICARE, OTHER ==
--- NOTE | 2020-11-10 09:34 | XRAY Report ---
PROCEDURE: Chest 1 View X-Ray INDICATIONS: chest pain TECHNIQUE: One view of the chest was acquired. COMPARISON: 07/15/2016 FINDINGS: Surgical changes and devices: Median sternotomy wires. Cardiac valve prosthesis. Lungs and pleura: No pleural effusions or pneumothorax. Cephalization of pulmonary vasculature and i nterstitial prominence concerning for CHF. Mediastinum: Mediastinal contours appear normal. Heart is enlarged Bones and chest wall: No suspicious bony lesions. Overlying soft tissues appear unremarkable. IMPRESSION: Cardiomegaly with cephalization of pulmonary vasculature and interstitial prominence concerning for C HF. Reviewed by: Winter Last MD, PhD on 11/10/2020 9:32 AM PDT Approved by: Winter Last MD, PhD on 11/10/2020 9:32 AM PDT Station ID: [id number]
[2020-11-10 09:51] LABS: BASOPHILS # (AUTO) 0.1 10^3/uL (0.0-0.1); BASOPHILS % (AUTO) 0.6 %; EOSINOPHILS # (AUTO) 0.3 10^3/uL (0.0-0.7); EOSINOPHILS % (AUTO) 3.3 %; HCT - HEMATOCRIT 34.6 % (37.0-47.0); HGB - HEMOGLOBIN 11.6 g/dL (12.0-16.0); LYMPHOCYTES # (AUTO) 1.1 10^3/uL (1.5-3.5); LYMPHOCYTES % (AUTO) 13.7 %; MEAN CORPUSCULAR HEMOGLOBIN 31.3 pg (27.0-31.0); MEAN CORPUSCULAR HGB CONC 33.5 g/dL (32.0-36.0); MEAN CORPUSCULAR VOLUME 93.3 fL (81.0-99.0); MEAN PLATELET VOLUME 9.9 fL (7.9-10.8); MONOCYTES # (AUTO) 0.5 10^3/uL (0.0-1.0); PLT - PLATELET COUNT 209 10^3/uL (130-450); RED BLOOD COUNT 3.71 10^6/uL (4.20-5.40); WHITE BLOOD COUNT 7.9 x10^3/uL (4.8-10.8)
[2020-11-10 10:04] LABS: ALBUMIN 3.5 g/dL (3.2-5.5); BILIRUBIN,TOTAL 1.4 mg/dL (0.2-1.0); CALCIUM 9.1 mg/dL (8.5-10.3); CREATININE 1.3 mg/dL (0.4-1.0); POTASSIUM 4.1 mmol/L (3.5-5.0)
--- NOTE | 2020-11-10 10:36 | ED Physician Documentation ---
PD HPI DYSPNEA - Stated complaint Stated Complaint: SOA - Chief complaint Chief Complaint: Resp - History obtained from History obtained from: Patient - Additional information Additional information: Patient with history of atrial fibrillation who sees Dr. Cheng comes to the emergency department chief complaint of worse shortness of breath than usual. Patient states that normally when she ambulates, and since having atrial fibrillation, she experiences some dyspnea that lasts for some seconds, but not more than 10 to 20 seconds. Patient states that over the last few days, she has noticed that her shortness of breath seems to be a little worse and that will last perhaps for several minutes. Patient states this is mainly with exertion, such as when she gets up to go the bathroom. Patient denies orthopnea. She is noticed a little more edema around her ankles. She is currently on Lasix 40 mg twice daily with the provision to double the dose if needed. Patient states she tried doubling the dose once a couple of days ago but that it did not help. She is now back to her normal dose. Patient denies chest pain. No fevers or chills. She has a cough in the morning because she feels "congested" when she wakes up. She denies any nausea or vomiting. No other complaints at this time. Review of Systems Ten Systems: 10 systems reviewed and negative Constitutional: reports: Reviewed and negative Eyes: reports: Reviewed and negative Ears: reports: Reviewed and negative Nose: reports: Reviewed and negative Throat: reports: Reviewed and negative Cardiac: reports: Reviewed and negative Respiratory: reports: Dyspnea, Cough GI: reports: Reviewed and negative : reports: Reviewed and negative Skin: reports: Reviewed and negative Musculoskeletal: reports: Reviewed and negative Neurologic: reports: Reviewed and negative Psychiatric: reports: Reviewed and negative Endocrine: reports: Reviewed and negative Immunocompromised: reports: Reviewed and negative PD PAST MEDICAL HISTORY - Past Medical History Past Medical History: Yes Cardiovascular: Hypertension, High cholesterol, Coronary artery disease, [place], Atrial fibrillation, Other Respiratory: Shortness of breath, Other GI: GERD, Chronic diarrhea : Other Other Past Medical History: AAA, decreased kidney and liver function, fatty liver - Past Surgical History Past Surgical History: Yes Cardiovascular: Coronary stent, Valve replacement - Present Medications Home Medications: Ambulatory Orders Medication Instructions Recorded Confirmed Atorvastatin Calcium [Lipitor] 80 mg PO DAILY 11/06/13 02/03/19 Losartan [Cozaar] 25 mg PO DAILY 11/06/13 02/03/19 Amitriptyline [Elavil] 25 mg PO HS #30 tablet 07/15/16 02/03/19 Furosemide 40 mg PO DAILY 07/15/16 02/03/19 Potassium Chloride 20 meq PO DAILY 07/15/16 02/03/19 Aspirin 80 mg PO DAILY 02/03/19 02/03/19 Metoprolol Succinate [Toprol Xl] 50 mg PO DAILY 02/03/19 02/03/19 - Allergies Allergies/Adverse Reactions: Allergies Allergy/AdvReac Type Severity Reaction Status Date / Time No Known Drug Allergies Allergy Verified 11/10/20 09:07 - Social History Does the pt smoke?: No Smoking Status: Former smoker Does the pt drink ETOH?: No ETOH Use: Wine Does the pt have substance abuse?: No - Immunizations Immunizations are current?: Yes PD ED PE NORMAL - Vitals Vital signs reviewed: Yes - General General: Alert and oriented X 3, No acute distress - HEENT HEENT: PERRL - Neck Neck: Supple, no meningeal sign - Cardiac Cardiac: RRR, No murmur - Respiratory Respiratory: No respiratory distress, Other (Rales bilateral bases.) - Abdomen Abdomen: Soft, Non tender, Non distended - Derm Derm: Normal color, Warm and dry, No rash - Extremities Extremities: No deformity, No calf tenderness / cord, Other (1+ pitting edema bilateral ankles and feet.) - Neuro Neuro: Alert and oriented X 3, angle shearer 2-12 intact, Normal speech - Psych Psych: Normal mood, Normal affect Results - Vitals Vitals: Vital Signs - 24 hr 11/10/20 11/10/20 09:02 11:07 Temperature 36.7 C 36.6 C Heart Rate 100 66 Respiratory 18 19 Rate Blood Pressure 149/74 H 123/85 H O2 Saturation 98 99 Oxygen O2 Source Room air - EKG (time done) 0950 Rate: Rate (enter#) (103) Rhythm: Atrial fibrillation [place]: Normal Intervals: Other (Nonspecific repolarization abnormality, Related) QRS: Normal Other comments: Other comments (Occasional PVC.) Compare to prior EKG: Old EKG unavailable Computer interpretation: Agree with computer - Labs Labs: Laboratory Tests 11/10/20 11/10/20 11/10/20 09:45 09:45 09:45 WBC 7.9 RBC 3.71 L Hgb 11.6 L Hct 34.6 L MCV 93.3 MCH 31.3 H MCHC 33.5 RDW 14.0 Plt Count 209 MPV 9.9 Neut # (Auto) 6.0 Lymph # (Auto) 1.1 L [place] # (Auto) 0.5 Eos # (Auto) 0.3 Baso # (Auto) 0.1 Absolute Nucleated RBC 0.00 Nucleated RBC % 0.0 Sodium 136 Potassium 4.1 Chloride 100 L Carbon Dioxide 25 Anion Gap 11.0 BUN 22 H Creatinine 1.3 H Estimated GFR (MDRD) 40 L Glucose 140 H Calcium 9.1 Total Bilirubin 1.4 H AST 34 ALT 24 Alkaline Phosphatase 91 B-Natriuretic Peptide 846 H Total Protein 7.0 Albumin 3.5 Globulin 3.5 Albumin/Globulin Ratio 1.0 Lipase 38 - Rads (name of study) cxr Radiology: Final report received, EMP read indepedently, See rad report (Vascular congestion, concerning for CHF) PD MEDICAL DECISION MAKING - ED course Complexity details: reviewed results, re-evaluated patient, considered differential, d/w patient ED course: The patient was worked up with laboratory studies, EKG, and chest x-ray. She was found to be in atrial fibrillation and showed signs of CHF on x-ray. She was given an extra dose of Lasix here in the emergency department. I discussed with the patient that we will put her on temporarily increased dosing regimen of Lasix and that after this, she should follow-up with her primary care physician Dr. Cheng. The patient was well-appearing and stable for discharge home. We have discussed the usual indications for return. Departure - Departure Disposition: 01 Home, Self Care Clinical Impression: Congestive heart failure Qualifiers: Heart failure type: unspecified Heart failure chronicity: acute on chronic Qualified Code(s): I50.9 - Heart failure, unspecified Condition: Stable Instructions: ED CHF General Comments: Your chest x-ray and labs indicate that you are having a little bit of fluid backing up into your lungs, as we discussed might be the case. This usually is the result of the heart not quite pumping the blood forward as strongly as it needs to and is a common scenario from time to time with atrial fibrillation. Generally, the episode resolves with some extra diuretic. We have given you an extra dose today, and you should go up on your Lasix/furosemide to 80 mg daily for the next 5 days. You should call Dr. Cheng's office this afternoon to set up an appointment to be seen within the next couple of weeks. In the meantime, please also follow-up with your primary care physician. Discharge Date/Time: 11/10/20 11:45
[2020-11-10] MEDS ORDERED: FUROSEMIDE 40 MG/4 ML VIAL IVP STA (10:41)
[2020-11-10 11:37] VITALS: BP 123/85
== END 2020-11-10 11:45 | disposition home or self-care (01) ==
LOC: ED 08:42
DX: I50.9 Heart failure, unspecified (principal); I48.91 Unspecified atrial fibrillation; Z87.891 Personal history of nicotine dependence
CPT/HCPCS: 36415; 80053; 83690; 83880; 85025; 93005; 96374; 99284

== ENCOUNTER 2020-12-14 08:00 | Outpatient (CLI) | payer MEDICARE, OTHER ==
[2020-12-14 17:56] LABS: BASOPHILS # (AUTO) 0.1 10^3/uL (0.0-0.1); BASOPHILS % (AUTO) 0.8 %; EOSINOPHILS # (AUTO) 0.2 10^3/uL (0.0-0.7); EOSINOPHILS % (AUTO) 2.5 %; HCT - HEMATOCRIT 40.9 % (37.0-47.0); HGB - HEMOGLOBIN 13.1 g/dL (12.0-16.0); LYMPHOCYTES # (AUTO) 1.3 10^3/uL (1.5-3.5); LYMPHOCYTES % (AUTO) 14.4 %; MEAN CORPUSCULAR VOLUME 96.9 fL (81.0-99.0); MEAN PLATELET VOLUME 11.5 fL (7.9-10.8); MONOCYTES # (AUTO) 0.6 10^3/uL (0.0-1.0); MONOCYTES % (AUTO) 6.2 %; NEUTROPHILS # (AUTO) 6.9 10^3/uL (1.5-6.6); NEUTROPHILS % (AUTO) 75.9 %; PLT - PLATELET COUNT 193 10^3/uL (130-450); RED BLOOD COUNT 4.22 10^6/uL (4.20-5.40); RED CELL DISTRIBUTION WIDTH 14.4 % (12.0-15.0); WHITE BLOOD COUNT 9.1 x10^3/uL (4.8-10.8)
[2020-12-14 18:21] LABS: ALBUMIN 3.9 g/dL (3.2-5.5); BILIRUBIN,TOTAL 1.5 mg/dL (0.2-1.0); CALCIUM 9.3 mg/dL (8.5-10.3); CREATININE 1.2 mg/dL (0.4-1.0); TOTAL PROTEIN 7.7 g/dL (6.7-8.2)
[2020-12-14 20:46] LABS: ESTIMATED AVERAGE GLUCOSE 128 mg/dL (70-100); HEMOGLOBIN A1c% 6.1 % (4.27-6.07)
== END 2020-12-14 23:59 | disposition home or self-care (01) ==
LOC: LAB.WCP 08:00
PROVIDERS: ATTEND Family Medicine
DX: E11.9 Type 2 diabetes mellitus without complications (principal); I50.9 Heart failure, unspecified
CPT/HCPCS: 36415; 80053; 83036; 83880; 85025

== ENCOUNTER 2021-01-04 10:07 | Outpatient (CLI) | payer MEDICARE, OTHER | END 2021-01-04 10:08 | disposition home or self-care (01) | LOC: DI 10:07 | PROVIDERS: ATTEND Family Medicine | DX: I11.0 Hypertensive heart disease with heart failure (principal); I50.9 Heart failure, unspecified; Z95.2 Presence of prosthetic heart valve; I34.0 Nonrheumatic mitral (valve) insufficiency | CPT/HCPCS: 93306 ==

== ENCOUNTER 2021-05-23 10:40 | Outpatient (CLI) | payer MEDICARE, OTHER ==
[2021-05-23 11:41] LABS: BASOPHILS # (AUTO) 0.1 10^3/uL (0.0-0.1); BASOPHILS % (AUTO) 0.6 %; EOSINOPHILS # (AUTO) 0.2 10^3/uL (0.0-0.7); EOSINOPHILS % (AUTO) 2.7 %; HCT - HEMATOCRIT 41.2 % (37.0-47.0); HGB - HEMOGLOBIN 13.7 g/dL (12.0-16.0); LYMPHOCYTES # (AUTO) 1.3 10^3/uL (1.5-3.5); LYMPHOCYTES % (AUTO) 16.5 %; MEAN CORPUSCULAR HEMOGLOBIN 30.9 pg (27.0-31.0); MEAN CORPUSCULAR HGB CONC 33.3 g/dL (32.0-36.0); MEAN PLATELET VOLUME 10.9 fL (7.9-10.8); MONOCYTES # (AUTO) 0.5 10^3/uL (0.0-1.0); MONOCYTES % (AUTO) 6.7 %; NEUTROPHILS # (AUTO) 5.9 10^3/uL (1.5-6.6); NEUTROPHILS % (AUTO) 73.4 %; PLT - PLATELET COUNT 187 10^3/uL (130-450); RED BLOOD COUNT 4.43 10^6/uL (4.20-5.40); RED CELL DISTRIBUTION WIDTH 13.3 % (12.0-15.0); WHITE BLOOD COUNT 8.1 x10^3/uL (4.8-10.8)
[2021-05-23 13:08] LABS: CREATININE,URINE 60.7 mg/dL; MICROALBUM/CREATININE RATIO,UR 136.7 ug/mg (<30.0); MICROALBUMIN,URINE 8.3 mg/dL (0-300.0)
[2021-05-23 13:19] LABS: ALBUMIN 3.8 g/dL (3.2-5.5); ALBUMIN/GLOBULIN RATIO 1.1 (1.0-2.2); ALKALINE PHOSPHATASE 90 IU/L (42-121); ALT ALANINE AMINOTRANSFERASE 18 IU/L (10-60); AST ASPARTATE AMINOTRANSFERASE 29 IU/L (10-42); BILIRUBIN,TOTAL 1.4 mg/dL (0.2-1.0); BUN - BLOOD UREA NITROGEN 32 mg/dL (6-20); CALCIUM 9.2 mg/dL (8.5-10.3); CARBON DIOXIDE - CO2 25 mmol/L (21-32); CHLORIDE 101 mmol/L (101-111); CHOL/HDL RATIO 2.5 (<4.4); CHOLESTEROL 165 mg/dL; CREATININE 1.4 mg/dL (0.4-1.0); GFR - MDRD 36 (>89); GLUCOSE 127 mg/dL (70-100); HDL CHOLESTEROL 67 mg/dL; LDL CHOLESTEROL,CALCULATED 81 mg/dL; LDL/HDL RATIO 1.2 (<4.4); POTASSIUM 3.7 mmol/L (3.5-5.0); SODIUM 138 mmol/L (135-145); TOTAL PROTEIN 7.3 g/dL (6.7-8.2); TRIGLYCERIDES 84 mg/dL; VLDL CHOLESTEROL 17 mg/dL
[2021-05-23 13:34] LABS: ESTIMATED AVERAGE GLUCOSE 131 mg/dL (70-100); HEMOGLOBIN A1c% 6.2 % (4.27-6.07)
== END 2021-05-23 10:41 | disposition home or self-care (01) ==
LOC: LAB.N 10:40
PROVIDERS: ATTEND Family Medicine
DX: E11.9 Type 2 diabetes mellitus without complications (principal)
CPT/HCPCS: 36415; 80053; 80061; 82043; 82570; 83036; 83721; 85025

== ENCOUNTER 2022-03-27 10:13 | Outpatient (CLI) | payer MEDICARE, OTHER ==
[2022-03-27 10:32] LABS: BASOPHILS % (AUTO) 0.5 %; EOSINOPHILS # (AUTO) 0.2 10^3/uL (0.0-0.7); EOSINOPHILS % (AUTO) 2.4 %; HCT - HEMATOCRIT 40.7 % (37.0-47.0); HGB - HEMOGLOBIN 13.3 g/dL (12.0-16.0); LYMPHOCYTES # (AUTO) 1.5 10^3/uL (1.5-3.5); LYMPHOCYTES % (AUTO) 19.3 %; MEAN CORPUSCULAR HEMOGLOBIN 30.3 pg (27.0-31.0); MEAN CORPUSCULAR HGB CONC 32.7 g/dL (32.0-36.0); MEAN CORPUSCULAR VOLUME 92.7 fL (81.0-99.0); MEAN PLATELET VOLUME 10.6 fL (7.9-10.8); MONOCYTES # (AUTO) 0.6 10^3/uL (0.0-1.0); MONOCYTES % (AUTO) 7.3 %; NEUTROPHILS # (AUTO) 5.3 10^3/uL (1.5-6.6); NEUTROPHILS % (AUTO) 70.2 %; PLT - PLATELET COUNT 201 10^3/uL (130-450); RED BLOOD COUNT 4.39 10^6/uL (4.20-5.40); RED CELL DISTRIBUTION WIDTH 13.9 % (12.0-15.0); WHITE BLOOD COUNT 7.6 x10^3/uL (4.8-10.8)
[2022-03-27 10:51] LABS: ALBUMIN 3.7 g/dL (3.2-5.5); ALKALINE PHOSPHATASE 97 IU/L (42-121); ALT ALANINE AMINOTRANSFERASE 18 IU/L (10-60); AST ASPARTATE AMINOTRANSFERASE 30 IU/L (10-42); BILIRUBIN,TOTAL 1.3 mg/dL (0.2-1.0); BUN - BLOOD UREA NITROGEN 29 mg/dL (6-20); CALCIUM 9.3 mg/dL (8.5-10.3); CARBON DIOXIDE - CO2 26 mmol/L (21-32); CHLORIDE 101 mmol/L (101-111); CHOL/HDL RATIO 2.4 (<4.4); CHOLESTEROL 157 mg/dL; CREATININE 1.3 mg/dL (0.4-1.0); GFR - MDRD 40 (>89); GLUCOSE 144 mg/dL (70-100); HDL CHOLESTEROL 65 mg/dL; LDL CHOLESTEROL,CALCULATED 78 mg/dL; LDL/HDL RATIO 1.2 (<4.4); POTASSIUM 4.3 mmol/L (3.5-5.0); SODIUM 136 mmol/L (135-145); TOTAL PROTEIN 7.4 g/dL (6.7-8.2); TRIGLYCERIDES 69 mg/dL; VLDL CHOLESTEROL 14 mg/dL
[2022-03-27 11:03] LABS: THYROID STIMULATING HORMONE 3.23 uIU/mL (0.34-5.60)
[2022-03-27 11:46] LABS: CREATININE,URINE 28.4 mg/dL; MICROALBUM/CREATININE RATIO,UR 52.8 ug/mg (<30.0); MICROALBUMIN,URINE 1.5 mg/dL (0-300.0)
[2022-03-27 12:32] LABS: ESTIMATED AVERAGE GLUCOSE 131 mg/dL (70-100); HEMOGLOBIN A1c% 6.2 % (4.27-6.07)
== END 2022-03-27 10:14 | disposition home or self-care (01) ==
LOC: LAB 10:13
PROVIDERS: ATTEND Internal Medicine
DX: E11.9 Type 2 diabetes mellitus without complications (principal); E78.5 Hyperlipidemia, unspecified; R41.3 Other amnesia; I48.0 Paroxysmal atrial fibrillation; I10 Essential (primary) hypertension
CPT/HCPCS: 36415; 80053; 80061; 82043; 82570; 82607; 83036; 83721; 84443; 85025

== ENCOUNTER 2022-03-30 14:07 | Outpatient (CLI) | payer MEDICARE, OTHER ==
--- NOTE | 2022-03-30 21:42 | XRAY Report ---
PROCEDURE: Lumbar Spine 2 View INDICATIONS: DEGENERATIVE JOINT DISEASE, ARTHRITIS TECHNIQUE: 3 views of the lumbar spine were acquired. COMPARISON: CT abdomen pelvis 12/23/2018. FINDINGS: Bones: 5 [id number] vertebrae are present. Left convexity curvature thoracolumbar spine center ed at T12-L1. Multilevel degenerative changes are present with disc height loss, endplate spurring, a nd facet arthropathy. Degenerative changes are greatest at L5-S1, severe. No vertebral body compression fractures. No suspicious bony lesions. Soft tissues: Overlying bowel gas pattern is normal. Vascular calcifications are present. IMPRESSION: Multilevel degenerative changes of the lumbar spine. Reviewed by: Elian Merino MD on 03/30/2022 9:41 PM PST Approved by: Elian Merino MD on 03/30/2022 9:41 PM PST Station ID: [id number]
--- NOTE | 2022-03-30 21:51 | XRAY Report ---
PROCEDURE: Hips 2V BILAT INDICATIONS: DEGENERATIVE JOINT DISEASE, ARTHRITIS TECHNIQUE: Frontal view of the pelvis, lateral views of both hips. COMPARISON: CT abdomen pelvis 12/23/2018. FINDINGS: Bones: No fractures or dislocations. No suspicious bony lesions. The visualized pelvic ring appear s intact. Severe degenerative changes of the right hip with severe joint space loss, spurring, subch ondral cystic change. Mild-moderate left hip degenerative changes also present. Soft tissues: No suspicious soft tissue calcifications or masses. IMPRESSION: Degenerative changes of both hips, right worse than left. Reviewed by: Elian Merino MD on 03/30/2022 9:50 PM PST Approved by: Elian Merino MD on 03/30/2022 9:50 PM PST Station ID: [id number]
== END 2022-03-30 14:08 | disposition home or self-care (01) ==
LOC: DI 14:07
PROVIDERS: ATTEND Internal Medicine
DX: M47.816 Spondylosis without myelopathy or radiculopathy, lumbar region (principal); M51.36 Other intervertebral disc degeneration, lumbar region; M51.37 Other intervertebral disc degeneration, lumbosacral region; M47.817 Spondylosis without myelopathy or radiculopathy, lumbosacral region; M16.0 Bilateral primary osteoarthritis of hip

== ENCOUNTER 2022-04-17 12:39 | Outpatient (CLI) | payer MEDICARE, OTHER ==
--- NOTE | 2022-04-17 15:30 | MRI Report ---
PROCEDURE: BRAIN WO INDICATIONS: MEMORY IMPAIRMENT TECHNIQUE: Noncontrast axial T1 spin echo, axial T2 fast spin echo, sagittal and axial FLAIR, coronal T2 fast sp in echo, axial gradient echo, axial diffusion and ADC through the brain. COMPARISON: None. FINDINGS: Image quality: Excellent. CSF Spaces: Basal cisterns are patent. No extra-axial fluid collections. Ventricles are normal in size and shape. Brain: No intracranial masses or hemorrhage. Rosales/white matter interface is normal. Brainstem appe ars normal. Diffusion-weighted images demonstrate no acute ischemic insult. 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 Normal intravascular flow voids are present. Skull and face: Calvarium has normal marrow signal. Orbits appear normal. Sinuses: Sinuses and mastoids are clear. IMPRESSION: 1. No acute intracranial process. 2. Moderate atrophy and chronic microvascular ischemic changes. Reviewed by: Sonja Macias MD on 04/17/2022 3:29 PM PST Approved by: Sonja Macias MD on 04/17/2022 3:29 PM [facility] Station ID: [id number]
== END 2022-04-17 12:40 | disposition home or self-care (01) ==
LOC: DI 12:39
PROVIDERS: ATTEND Internal Medicine
DX: R41.3 Other amnesia (principal); Z86.79 Personal history of other diseases of the circulatory system; I67.82 Cerebral ischemia; G31.89 Other specified degenerative diseases of nervous system

== ENCOUNTER 2022-10-12 10:09 | Outpatient (CLI) | payer MEDICARE, OTHER ==
[2022-10-12 10:28] LABS: CREATININE 1.4 mg/dL (0.4-1.0); POTASSIUM 3.8 mmol/L (3.5-5.0)
== END 2022-10-12 10:10 | disposition home or self-care (01) ==
LOC: LAB 10:09
PROVIDERS: ATTEND Internal Medicine Cardiovascular Disease
DX: I25.2 Old myocardial infarction (principal)
CPT/HCPCS: 36415; 80048

== ENCOUNTER 2022-11-09 09:54 | Outpatient (CLI) | payer MEDICARE, OTHER ==
[2022-11-09 10:15] LABS: CALCIUM 9.4 mg/dL (8.5-10.3); CREATININE 1.6 mg/dL (0.6-1.3); ESTIMATED AVERAGE GLUCOSE 123 mg/dL (70-100); HEMOGLOBIN A1c% 5.9 % (4.27-6.07); POTASSIUM 3.9 mmol/L (3.5-4.5)
== END 2022-11-09 09:55 | disposition home or self-care (01) ==
LOC: LAB 09:54
PROVIDERS: ATTEND Internal Medicine
DX: E11.9 Type 2 diabetes mellitus without complications (principal)
CPT/HCPCS: 36415; 80048; 83036

== ENCOUNTER 2022-11-17 11:46 | Outpatient (CLI) | payer MEDICARE, OTHER ==
--- NOTE | 2022-11-17 16:27 | Ultrasound Report ---
PROCEDURE: Retroperitoneal Limited INDICATIONS: AAA TECHNIQUE: Real-time scanning was performed of the retroperitoneal organs, with image documentation. COMPARISON: 06/11/2020 FINDINGS: The proximal aorta measures 2.5 x 2.8 cm (previously 2.5 x 2.2 cm). The mid aorta measures 3.5 x 3.8 cm (previously 2.9 x 3.2 cm). The distal aorta measures 5.2 x 5.0 cm (previously 4.7 x 5.0 cm). There is an eccentric mural thrombus of the distal aorta causing stenosis of the distal aorta of appr oximately 80%. Plaque is noted throughout the entire aorta. There are 2 areas of fusiform aneurysm in the mid and distal aorta. The mid and distal aorta demonstrate increased in size compared to the prior study. The right common iliac artery measures 0.8 x 1.0 cm. The left common iliac artery measures 0.7 x 1.2 cm. IMPRESSION: 1. 2 foci of fusiform dilatation of the mid and distal aorta, increased in size compared to the prior ultrasound on 06/11/2020. 2. Diffuse severe atherosclerotic calcifications. 3. 80% stenosis in the distal aorta. Reviewed by: Fredrick Camilo on 11/17/2022 4:25 PM PDT Approved by: Fredrick Camilo on 11/17/2022 4:25 PM PDT Station ID: [id number]
== END 2022-11-17 11:47 | disposition home or self-care (01) ==
LOC: DI 11:46
PROVIDERS: ATTEND Internal Medicine
DX: I71.40 Abdominal aortic aneurysm, without rupture, unspecified (principal); I70.0 Atherosclerosis of aorta; I35.0 Nonrheumatic aortic (valve) stenosis

== ENCOUNTER 2023-01-01 12:27 | Outpatient (CLI) | payer MEDICARE, OTHER ==
[2023-01-01 12:47] LABS: BASOPHILS % (AUTO) 0.5 %; EOSINOPHILS # (AUTO) 0.2 10^3/uL (0.0-0.7); EOSINOPHILS % (AUTO) 2.5 %; HCT - HEMATOCRIT 36.7 % (37.0-47.0); HGB - HEMOGLOBIN 12.1 g/dL (12.0-16.0); LYMPHOCYTES # (AUTO) 1.1 10^3/uL (1.5-3.5); LYMPHOCYTES % (AUTO) 13.5 %; MEAN CORPUSCULAR HEMOGLOBIN 31.5 pg (27.0-31.0); MEAN CORPUSCULAR VOLUME 95.6 fL (81.0-99.0); MEAN PLATELET VOLUME 10.7 fL (7.9-10.8); MONOCYTES # (AUTO) 0.4 10^3/uL (0.0-1.0); MONOCYTES % (AUTO) 4.1 %; NEUTROPHILS # (AUTO) 6.7 10^3/uL (1.5-6.6); NEUTROPHILS % (AUTO) 79.2 %; PLT - PLATELET COUNT 157 10^3/uL (130-450); RED BLOOD COUNT 3.84 10^6/uL (4.20-5.40); RED CELL DISTRIBUTION WIDTH 14.5 % (12.0-15.0); WHITE BLOOD COUNT 8.5 x10^3/uL (4.8-10.8)
[2023-01-01 13:19] LABS: CALCIUM 9.4 mg/dL (8.5-10.3); CREATININE 1.3 mg/dL (0.6-1.3)
[2023-01-01 13:23] LABS: INR 1.8 (0.8-1.2); PT - PROTHROMBIN TIME 19.1 secs (9.9-12.6)
== END 2023-01-01 12:28 | disposition home or self-care (01) ==
LOC: LAB 12:27
PROVIDERS: ATTEND Internal Medicine Cardiovascular Disease
DX: I48.0 Paroxysmal atrial fibrillation (principal)
CPT/HCPCS: 36415; 80048; 85025; 85610

== ENCOUNTER 2023-04-24 10:15 | Outpatient (CLI) | payer MEDICARE, OTHER ==
[2023-04-24 10:24] LABS: BASOPHILS % (AUTO) 0.5 %; EOSINOPHILS # (AUTO) 0.3 10^3/uL (0.0-0.7); EOSINOPHILS % (AUTO) 3.8 %; HCT - HEMATOCRIT 41.9 % (37.0-47.0); HGB - HEMOGLOBIN 13.3 g/dL (12.0-16.0); LYMPHOCYTES # (AUTO) 1.5 10^3/uL (1.5-3.5); LYMPHOCYTES % (AUTO) 19.6 %; MEAN CORPUSCULAR HEMOGLOBIN 30.3 pg (27.0-31.0); MEAN CORPUSCULAR HGB CONC 31.7 g/dL (32.0-36.0); MEAN CORPUSCULAR VOLUME 95.4 fL (81.0-99.0); MEAN PLATELET VOLUME 10.7 fL (7.9-10.8); MONOCYTES # (AUTO) 0.5 10^3/uL (0.0-1.0); NEUTROPHILS # (AUTO) 5.3 10^3/uL (1.5-6.6); NEUTROPHILS % (AUTO) 68.7 %; PLT - PLATELET COUNT 183 10^3/uL (130-450); RED BLOOD COUNT 4.39 10^6/uL (4.20-5.40); RED CELL DISTRIBUTION WIDTH 14.2 % (12.0-15.0); WHITE BLOOD COUNT 7.7 x10^3/uL (4.8-10.8)
[2023-04-24 10:34] LABS: INR 1.6 (0.8-1.2); PT - PROTHROMBIN TIME 17.3 secs (9.9-12.6)
[2023-04-24 10:51] LABS: CALCIUM 9.4 mg/dL (8.5-10.3); CREATININE 1.4 mg/dL (0.6-1.3); POTASSIUM 4.1 mmol/L (3.5-4.5)
== END 2023-04-24 10:16 | disposition home or self-care (01) ==
LOC: LAB 10:15
PROVIDERS: ATTEND Internal Medicine Cardiovascular Disease
DX: I25.10 Atherosclerotic heart disease of native coronary artery without angina pectoris (principal); Z95.2 Presence of prosthetic heart valve
CPT/HCPCS: 36415; 80048; 85025; 85610

== ENCOUNTER 2023-04-26 10:39 | Outpatient (CLI) | payer MEDICARE, OTHER ==
[2023-04-26 11:03] LABS: CHOL/HDL RATIO 2.6 (<4.4); CHOLESTEROL 154 mg/dL; HDL CHOLESTEROL 59 mg/dL; LDL CHOLESTEROL,CALCULATED 70 mg/dL; LDL/HDL RATIO 1.2 (<4.4); TRIGLYCERIDES 127 mg/dL (48-352); VLDL CHOLESTEROL 25 mg/dL
== END 2023-04-26 10:40 | disposition home or self-care (01) ==
LOC: LAB 10:39
PROVIDERS: ATTEND Internal Medicine Cardiovascular Disease
DX: I25.10 Atherosclerotic heart disease of native coronary artery without angina pectoris (principal)
CPT/HCPCS: 36415; 80061; 83721

== ENCOUNTER 2023-05-21 09:30 | Outpatient (CLI) | payer MEDICARE, OTHER ==
[2023-05-21 09:47] LABS: BASOPHILS # (AUTO) 0.1 10^3/uL (0.0-0.1); BASOPHILS % (AUTO) 0.7 %; EOSINOPHILS # (AUTO) 0.2 10^3/uL (0.0-0.7); EOSINOPHILS % (AUTO) 2.9 %; HGB - HEMOGLOBIN 12.9 g/dL (12.0-16.0); LYMPHOCYTES # (AUTO) 1.5 10^3/uL (1.5-3.5); LYMPHOCYTES % (AUTO) 21.1 %; MEAN CORPUSCULAR HEMOGLOBIN 30.1 pg (27.0-31.0); MEAN CORPUSCULAR HGB CONC 31.5 g/dL (32.0-36.0); MEAN CORPUSCULAR VOLUME 95.8 fL (81.0-99.0); MEAN PLATELET VOLUME 10.1 fL (7.9-10.8); MONOCYTES # (AUTO) 0.4 10^3/uL (0.0-1.0); MONOCYTES % (AUTO) 6.4 %; NEUTROPHILS # (AUTO) 4.7 10^3/uL (1.5-6.6); NEUTROPHILS % (AUTO) 68.5 %; PLT - PLATELET COUNT 226 10^3/uL (130-450); RED BLOOD COUNT 4.28 10^6/uL (4.20-5.40); RED CELL DISTRIBUTION WIDTH 14.2 % (12.0-15.0); WHITE BLOOD COUNT 6.9 x10^3/uL (4.8-10.8)
[2023-05-21 10:01] LABS: ALBUMIN 3.8 g/dL (3.2-5.5); ALKALINE PHOSPHATASE 106 IU/L (42-121); ALT ALANINE AMINOTRANSFERASE 14 IU/L (10-60); AST ASPARTATE AMINOTRANSFERASE 28 IU/L (10-42); BILIRUBIN,TOTAL 0.9 mg/dL (0.2-1.0); BUN - BLOOD UREA NITROGEN 42 mg/dL (6-20); CALCIUM 9.4 mg/dL (8.5-10.3); CARBON DIOXIDE - CO2 28 mmol/L (21-32); CHLORIDE 101 mmol/L (101-111); CHOL/HDL RATIO 2.6 (<4.4); CHOLESTEROL 153 mg/dL; CREATININE 1.7 mg/dL (0.6-1.3); GFR - MDRD 29 (>89); GLUCOSE 134 mg/dL (74-104); HDL CHOLESTEROL 59 mg/dL; LDL CHOLESTEROL,CALCULATED 70 mg/dL; LDL/HDL RATIO 1.2 (<4.4); POTASSIUM 4.4 mmol/L (3.5-4.5); SODIUM 136 mmol/L (135-145); TOTAL PROTEIN 7.5 g/dL (6.4-8.9); TRIGLYCERIDES 120 mg/dL (48-352); VLDL CHOLESTEROL 24 mg/dL
[2023-05-21 10:16] LABS: THYROID STIMULATING HORMONE 5.54 uIU/mL (0.34-5.60)
[2023-05-21 12:32] LABS: MICROALBUMIN,URINE 6.4 mg/dL
[2023-05-21 22:32] LABS: ESTIMATED AVERAGE GLUCOSE 128 mg/dL (70-100); HEMOGLOBIN A1c% 6.1 % (4.27-6.07)
== END 2023-05-21 09:31 | disposition home or self-care (01) ==
LOC: LAB 09:30
PROVIDERS: ATTEND Internal Medicine
DX: I50.9 Heart failure, unspecified (principal); I21.4 Non-ST elevation (NSTEMI) myocardial infarction; E11.9 Type 2 diabetes mellitus without complications; I48.0 Paroxysmal atrial fibrillation
CPT/HCPCS: 36415; 80053; 80061; 82043; 82570; 83036; 83721; 84443; 85025

== ENCOUNTER 2023-09-11 10:43 | Outpatient (CLI) | payer MEDICARE, OTHER ==
[2023-09-11 12:57] LABS: CALCIUM 9.8 mg/dL (8.5-10.3); CREATININE 2.2 mg/dL (0.6-1.3); POTASSIUM 4.5 mmol/L (3.5-4.5)
[2023-09-11 13:08] LABS: ESTIMATED AVERAGE GLUCOSE 131 mg/dL (70-100); HEMOGLOBIN A1c% 6.2 % (4.27-6.07)
== END 2023-09-11 10:44 | disposition home or self-care (01) ==
LOC: LAB 10:43
PROVIDERS: ATTEND Internal Medicine
DX: E11.9 Type 2 diabetes mellitus without complications (principal)
CPT/HCPCS: 36415; 80048; 83036

== ENCOUNTER 2023-09-24 14:23 | Outpatient (CLI) | payer MEDICARE, OTHER | END 2023-09-24 23:59 | disposition critical access hospital (66) | LOC: EMS 14:23 | DX: R06.02 Shortness of breath (principal); I48.91 Unspecified atrial fibrillation | CPT/HCPCS: A0425; A0429 ==

== ENCOUNTER 2023-09-24 14:43 | Emergency (ER) | payer MEDICARE, OTHER ==
--- NOTE | 2023-09-24 15:42 | XRAY Report ---
PROCEDURE: Chest 1V INDICATIONS: DYSPNEA TECHNIQUE: One view of the chest was acquired. COMPARISON: Chest radiographs 11/10/2020. FINDINGS: Surgical changes and devices: Sternotomy wires and prosthetic heart valve are noted. Lungs and pleura: Bilateral interstitial prominence is seen with hazy opacities. There is silhouetti ng of the left hemidiaphragm suspicious for pleural effusion and/or consolidation. No pneumothorax. Mediastinum: Cardiac silhouette is enlarged. Bones and chest wall: No suspicious bony lesions. Overlying soft tissues appear unremarkable. IMPRESSION: Bilateral interstitial prominence and diffuse hazy opacities are suspicious for pulmonary edema. Susp ected small left pleural effusion versus left basilar consolidation. Cardiomegaly. Reviewed by: Elian Portillo MD on 09/24/2023 3:41 PM PDT Approved by: Elian Portillo MD on 09/24/2023 3:41 PM PDT Station ID: [id number]
[2023-09-24 15:45] LABS: BASOPHILS % (AUTO) 0.5 %; EOSINOPHILS % (AUTO) 0.5 %; HCT - HEMATOCRIT 35.2 % (37.0-47.0); HGB - HEMOGLOBIN 11.7 g/dL (12.0-16.0); LYMPHOCYTES % (AUTO) 12.4 %; MEAN CORPUSCULAR HEMOGLOBIN 31.7 pg (27.0-31.0); MEAN CORPUSCULAR HGB CONC 33.2 g/dL (32.0-36.0); MEAN CORPUSCULAR VOLUME 95.4 fL (81.0-99.0); MEAN PLATELET VOLUME 9.7 fL (7.9-10.8); MONOCYTES # (AUTO) 0.4 10^3/uL (0.0-1.0); MONOCYTES % (AUTO) 4.8 %; NEUTROPHILS # (AUTO) 6.7 10^3/uL (1.5-6.6); NEUTROPHILS % (AUTO) 81.6 %; PLT - PLATELET COUNT 157 10^3/uL (130-450); RED BLOOD COUNT 3.69 10^6/uL (4.20-5.40); WHITE BLOOD COUNT 8.2 x10^3/uL (4.8-10.8)
[2023-09-24 15:55] LABS: INR 1.4 (0.8-1.2); PT - PROTHROMBIN TIME 14.7 secs (9.9-12.6)
--- NOTE | 2023-09-24 15:58 | ED Physician Documentation ---
PD HPI DYSPNEA - Stated complaint Stated Complaint: AFIB - Chief complaint Chief Complaint: Cardiac - History obtained from History obtained from: Patient, Family - Additional information Additional information: 78-year-old female with history of aortic stenosis status post valve replacement, A-fib with Watchman procedure, mild dementia, enf-[id number] diabetes presents by EMS from the walk-in clinic for shortness of breath. Patient has had shortness of breath with exertion, particularly in the last week. At the walk-in clinic she was noted to be in atrial fibrillation and for some reason even though she always has atrial fibrillation they called 911 for transport. On arrival patient is asymptomatic. When asked how the emergency department can help her with any concerns she says "feed me". at bedside states that patient was told at her last doctor's office that she has low kidney function (GFR 22). She is pending a nephrology referral. Because of her kidney function her Lasix was decreased. also states that patient had recent negative nuclear stress test through her cardiology office. Review of Systems Constitutional: denies: Fever, Chills, Myalgias Respiratory: reports: Dyspnea. denies: Cough, Wheezing GI: denies: Abdominal Pain, Nausea, Vomiting, Constipation, Diarrhea Skin: denies: Rash, Lesions, Abrasion (s) Musculoskeletal: denies: Neck pain, Back pain, Extremity pain, Extremity swelling PD PAST MEDICAL HISTORY - Past Medical History Past Medical History: Yes Cardiovascular: Hypertension, High cholesterol, Coronary artery disease, CT, Atrial fibrillation, Other Respiratory: Shortness of breath, Other Endocrine/Autoimmune: Type 2 diabetes GI: GERD, Chronic diarrhea : Other - Past Surgical History Past Surgical History: Yes Cardiovascular: Coronary stent, Valve replacement - Present Medications Home Medications: Ambulatory Orders Medication Instructions Recorded Confirmed Atorvastatin Calcium [Lipitor] 80 mg PO DAILY 11/06/13 02/03/19 Losartan [Cozaar] 25 mg PO DAILY 11/06/13 02/03/19 Amitriptyline [Elavil] 25 mg PO HS #30 tablet 07/15/16 02/03/19 Furosemide 40 mg PO DAILY 07/15/16 02/03/19 Potassium Chloride 20 meq PO DAILY 07/15/16 02/03/19 Aspirin 80 mg PO DAILY 02/03/19 02/03/19 Metoprolol Succinate [Toprol Xl] 50 mg PO DAILY 02/03/19 02/03/19 - Allergies Allergies/Adverse Reactions: Allergies Allergy/AdvReac Type Severity Reaction Status Date / Time No Known Drug Allergies Allergy Verified 09/24/23 14:49 - Social History Does the pt smoke?: No Smoking Status: Never smoker Does the pt drink ETOH?: No Does the pt have substance abuse?: No - Immunizations Immunizations are current?: Yes PD ED PE NORMAL - Vitals Vital signs reviewed: Yes - General General: Alert and oriented X 3, No acute distress, Well developed/nourished - Cardiac Cardiac: Strong equal pulses, Other (irregularly irregular) - Respiratory Respiratory: No respiratory distress, Other (Mild inspiratory crackles bilateral bases) - Abdomen Abdomen: Soft, Non tender, Non distended - Derm Derm: Normal color, Warm and dry, No rash - Extremities Extremities: No deformity, No tenderness to palpate, Normal ROM s pain, No edema - Neuro Neuro: Alert and oriented X 3, loss control consultant 2-12 intact, No motor deficit, Normal speech Results - Vitals Vitals: Vital Signs - 24 hr 09/24/23 09/24/23 14:49 16:53 Temperature 36.8 C 36.5 C Heart Rate 88 86 Respiratory 20 18 Rate Blood Pressure 132/57 H 130/60 O2 Saturation 98 100 Oxygen O2 Source Room air - Labs Labs: Laboratory Tests 09/24/23 09/24/23 09/24/23 15:40 15:40 15:40 WBC 8.2 RBC 3.69 L Hgb 11.7 L Hct 35.2 L MCV 95.4 MCH 31.7 H MCHC 33.2 RDW 15.0 Plt Count 157 MPV 9.7 Neut # (Auto) 6.7 H Lymph # (Auto) 1.0 L [place] # (Auto) 0.4 Eos # (Auto) 0.0 Baso # (Auto) 0.0 Absolute Nucleated RBC 0.00 Nucleated RBC % 0.0 PT 14.7 H INR 1.4 H Sodium 137 Potassium 5.0 H Chloride 105 Carbon Dioxide 27 Anion Gap 5.0 L BUN 36 H Creatinine 1.6 H Estimated GFR (MDRD) 31 L Glucose 197 H Calcium 9.1 Total Bilirubin 1.4 H AST 24 ALT 18 Alkaline Phosphatase 99 Total Protein 5.6 L Albumin 3.4 Globulin 2.2 Albumin/Globulin Ratio 1.5 PD Medical Decision Making - ED course Complexity details: reviewed results, re-evaluated patient, considered differential, d/w patient ED course: Well-appearing patient presenting with progressive dyspnea on exertion, recently adjusted her Lasix dose due to decreasing kidney function. Recent negative nuclear stress test. Patient saturating well on room air, she currently denies any complaints and is requesting food. Laboratory work and imaging ordered. Laboratory work shows elevated creatinine, however GFR is 36, improved from laboratory work from PCP. Chest x-ray shows mild pulmonary edema, particularly at the bases. Patient and counseled of results of labs and imaging. They are happy to know that GFR seems to be increasing. Patient was given a dose of IV Bumex in the emergency department and counseled to increase her Lasix from 20 mg daily to 40 mg daily. Recommended close follow-up with both nephrology and cardiology for further adjustments to her medications. Departure - Departure Disposition: 01 Home, Self Care Clinical Impression: Pulmonary edema Condition: Stable Instructions: Edema Pulmonary Comments: Your laboratory work show that your kidney percent (GFR) is 36 today. You did have some fluid in your lungs. I recommend increasing your furosemide from 20 mg to 40 mg daily. Please follow-up with your heart doctor and the kidney doctor as scheduled. Forms: PCP List Discharge Date/Time: 09/24/23 16:57
[2023-09-24 16:00] LABS: ALBUMIN 3.4 g/dL (3.2-5.5); ALBUMIN/GLOBULIN RATIO 1.5 (1.0-2.2); BILIRUBIN,TOTAL 1.4 mg/dL (0.2-1.0); CALCIUM 9.1 mg/dL (8.5-10.3); CREATININE 1.6 mg/dL (0.6-1.3); TOTAL PROTEIN 5.6 g/dL (6.4-8.9)
[2023-09-24] MEDS: BUMETANIDE 1 MG/4 ML VIAL IVP STA (16:36)
[2023-09-24 17:00] VITALS: BP 130/60; O2SAT 100
== END 2023-09-24 16:57 | disposition home or self-care (01) ==
LOC: EDUNIT# → ED 14:43
DX: J81.1 Chronic pulmonary edema (principal); I48.91 Unspecified atrial fibrillation; F03.90 Unspecified dementia, unspecified severity, without behavioral disturbance, psychotic disturbance, mood disturbance, and anxiety; E11.9 Type 2 diabetes mellitus without complications; Z79.84 Long term (current) use of oral hypoglycemic drugs; I10 Essential (primary) hypertension; E78.00 Pure hypercholesterolemia, unspecified; I25.10 Atherosclerotic heart disease of native coronary artery without angina pectoris; I25.2 Old myocardial infarction
CPT/HCPCS: 36415; 80053; 85025; 85610; 93005; 96374; 99284

== ENCOUNTER 2023-10-14 13:28 | Outpatient (CLI) | payer MEDICARE, OTHER ==
[2023-10-14 13:59] LABS: CALCIUM 9.4 mg/dL (8.5-10.3); CREATININE 1.6 mg/dL (0.6-1.3); PHOSPHORUS 3.6 mg/dL (2.5-5.0); POTASSIUM 4.5 mmol/L (3.5-4.5)
== END 2023-10-14 13:29 | disposition home or self-care (01) ==
LOC: LAB 13:28
PROVIDERS: ATTEND Internal Medicine
DX: I13.0 Hypertensive heart and chronic kidney disease with heart failure and stage 1 through stage 4 chronic kidney disease, or unspecified chronic kidney disease (principal); I50.9 Heart failure, unspecified; N18.4 Chronic kidney disease, stage 4 (severe)
CPT/HCPCS: 36415; 80048; 82306; 83880; 83970; 84100

== ENCOUNTER 2023-12-12 10:09 | Emergency (ER) | payer MEDICARE, OTHER ==
--- NOTE | 2023-12-12 10:37 | ED Physician Documentation ---
PD HPI ABD PAIN - Stated complaint Stated Complaint: SOA,MEMORY LOSS,GEN WEAKNESS - Chief complaint Chief Complaint: Cardiac - History obtained from History obtained from: Patient, Family - Additional information Additional information: This is a andre 78-year-old woman who presents accompanied by her for the evaluation of subacute to chronic mental status issues and also subacute to chronic dyspnea. She has a history of A-fib with a watchman in place, prosthetic valve replacement, and was a remote smoker. Much of the history is from the due to her confusion. He notes that for maybe 6 months she has had memory difficulties. They have discussed it with the primary care physician and sounds like they are planning on neurology referral but not yet completed. He says she has been complaining of lower abdominal pain and having coughing fits. PD PAST MEDICAL HISTORY - Past Medical History Past Medical History: Yes Cardiovascular: Hypertension, High cholesterol, Coronary artery disease, [place], Atrial fibrillation, Other Respiratory: Shortness of breath, Other Endocrine/Autoimmune: Type 2 diabetes GI: GERD, Chronic diarrhea : Other - Past Surgical History Past Surgical History: Yes Cardiovascular: Coronary stent, Valve replacement - Present Medications Home Medications: Ambulatory Orders Medication Instructions Recorded Confirmed Atorvastatin Calcium [Lipitor] 80 mg PO DAILY 11/06/13 12/12/23 Furosemide 40 mg PO DAILY 07/15/16 12/12/23 Potassium Chloride 10 meq PO DAILY 07/15/16 12/12/23 Aspirin 80 mg PO DAILY 02/03/19 12/12/23 Metoprolol Succinate [Toprol Xl] 50 mg PO DAILY 02/03/19 12/12/23 Empagliflozin [Jardiance] 12.5 mg PO DAILY 12/12/23 12/12/23 Escitalopram Oxalate 5 mg PO DAILY 12/12/23 12/12/23 Memantine [Namenda] 10 mg PO BID 12/12/23 12/12/23 Spironolactone [Aldactone] 25 mg PO DAILY 12/12/23 12/12/23 - Allergies Allergies/Adverse Reactions: Allergies Allergy/AdvReac Type Severity Reaction Status Date / Time No Known Drug Allergies Allergy Verified 12/12/23 10:29 - Social History Does the pt smoke?: No Smoking Status: Never smoker Does the pt drink ETOH?: No Does the pt have substance abuse?: No - Immunizations Immunizations are current?: Yes - POLST Patient has POLST: No PD ED PE NORMAL - Vitals Vital signs reviewed: Yes - General General: Other (She is alert and oriented to person. She knows she is in the hospital but cannot name what town the hospital is in, nor to what town she lives in. She is able to come up with the year but not the president.) - HEENT HEENT: PERRL, EOMI, Other (Poor dentition) - Neck Neck: Supple, no meningeal sign, No bony TTP - Cardiac Cardiac: Other (Irregularly irregular without murmur) - Respiratory Respiratory: Other (Mild tachypnea with mild expiratory wheezes, no clear focal findings.) - Abdomen Abdomen: Normal bowel sounds, Soft, Non tender - Neuro Eye Opening: Spontaneous Motor: Obeys Commands Verbal: Confused GCS Score: 14 Results - Vitals Vitals: Vital Signs - 24 hr 12/12/23 12/12/23 12/12/23 10:23 10:49 11:06 Temperature 35.6 C L Heart Rate 95 89 Respiratory 27 H 22 Rate Blood Pressure 117/73 Blood Pressure 116/103 H [Right] O2 Saturation 100 12/12/23 12/12/23 12/12/23 12:13 12:30 13:00 Temperature Heart Rate 96 93 98 Respiratory 25 H 27 H 26 H Rate Blood Pressure 111/50 L 122/108 H 98/79 Blood Pressure [Right] O2 Saturation 92 94 98 12/12/23 12/12/23 12/12/23 13:30 14:00 14:30 Temperature Heart Rate 106 H 102 H 96 Respiratory 27 H 24 28 H Rate Blood Pressure 122/66 117/67 101/52 L Blood Pressure [Right] O2 Saturation 97 96 95 12/12/23 12/12/23 12/12/23 15:00 15:30 16:00 Temperature Heart Rate 104 H 107 H 97 Respiratory 26 H 25 H 26 H Rate Blood Pressure 100/66 106/53 L 103/68 Blood Pressure [Right] O2 Saturation 94 96 93 12/12/23 12/12/23 12/12/23 16:30 17:00 17:30 Temperature 36.4 C L Heart Rate 95 97 94 Respiratory 24 27 H 20 Rate Blood Pressure 117/50 L 102/52 L 103/67 Blood Pressure [Right] O2 Saturation 94 95 96 Oxygen O2 Source Room air - EKG (time done) 1020 EKG releavant findings:: EKG personally interpreted by author of this note. Relevant findings are: Rate: Rate (enter#) (94) Rhythm: Atrial fibrillation Intervals: RBBB Ischemia: Normal ST segments - Labs Labs: Laboratory Tests 12/12/23 12/12/23 12/12/23 10:21 10:21 11:44 WBC 10.9 H RBC 4.47 Hgb 13.2 Hct 43.3 MCV 96.9 MCH 29.5 MCHC 30.5 L RDW 16.6 H Plt Count 145 MPV 10.9 H Neut # (Auto) 9.1 H Lymph # (Auto) 1.2 L [place] # (Auto) 0.6 Eos # (Auto) 0.0 Baso # (Auto) 0.0 Absolute Nucleated RBC 0.03 Nucleated RBC % 0.3 PT INR Sodium 130 L Potassium 6.0 H* Chloride 99 L Carbon Dioxide 16 L Anion Gap 15.0 H BUN 60 H Creatinine 2.2 H Estimated GFR (MDRD) 22 L Glucose 167 H Calcium 9.7 Magnesium 2.6 H Total Bilirubin 1.7 H AST 128 H ALT 103 H Alkaline Phosphatase 133 H Troponin I High Sens 107.6 H* B-Natriuretic Peptide Total Protein 7.5 Albumin 3.7 Globulin 3.8 Albumin/Globulin Ratio 1.0 Folate 43.3 12/12/23 12/12/23 12/12/23 11:44 11:44 14:05 WBC RBC Hgb Hct MCV MCH MCHC RDW Plt Count MPV Neut # (Auto) Lymph # (Auto) [place] # (Auto) Eos # (Auto) Baso # (Auto) Absolute Nucleated RBC Nucleated RBC % PT 20.6 H INR 2.0 H Sodium 135 Potassium 5.2 H Chloride 103 Carbon Dioxide 19 L Anion Gap 13.0 BUN 61 H Creatinine 2.1 H Estimated GFR (MDRD) 23 L Glucose 120 H Calcium 9.5 Magnesium Total Bilirubin AST ALT Alkaline Phosphatase Troponin I High Sens 104.5 H* B-Natriuretic Peptide 2206 H Total Protein Albumin Globulin Albumin/Globulin Ratio Folate - Rads (name of study) 1v cxr Relevant Findings:: Final report received (CHF), EMP independent interpretation of test PD Medical Decision Making - ED course ED course: 78-year-old woman presents with chronic complaints of dyspnea and confusion. Unfortunately her examination is most consistent with dementia with poor recall. It looks like she did have an MRI of her brain done in April of last year for an indication of memory impairment which did show at that time, moderate atrophy and chronic microvascular ischemic changes. It sounds like since then she has progressed. She is wheezy and probably use a breathing treatment and a chest x-ray. I will image her head but low pretest probability for acute findings necessitating intervention. is also noting lower abdominal pain for 2 weeks for which we will image her abdomen as well. I set expec tations that if this is dementia it would likely be progressive and social work consultation was offered and accepted. Subsequently she was identified on x-ray as having CHF/pulmonary edema and altho ugh she has a relatively normal CBC, her metabolic panel was notable for signs of hepatic congestion, acute renal failure, and hyperkalemia. It will be difficult to treat the combination of CHF and TERA with hyperkalemia, but given her dyspnea she was administered some Lasix and Lokelma. Given lack of cardiology and nephrology consultative abilities available here we did reach out to [place] where she had her prior aortic bovine valve and watchman procedures for likely transfer. CT of the abdomen and pelvis which was already ordered was changed to without contrast Spoke with Dr. Ferrera, cardiology in [place] at 12:33 PM and we discussed the findings and she recommends starting a dobutamine drip. She does note that this may make her more tachycardic and we discussed loading her with digoxin but she wants to hold off given her electrolyte abnormalities. Subsequently told by the transfer center I should hear from hospitalist. Presumptively accepted to [place] by Dr. Rojas at 1:15 PM pending bed availability. His CMP is - Critical Care Time(min): 42 Time Includes: Direct patient care, Review records, Reassess patient, Document care, Coordinate care, Medical consult, Family consult for tx dec Data interpretation: Labs, Pulse ox Procedures included in critical care time: Peripheral IV Procedures excluded from critical care time: EKG Departure - Departure Disposition: 02 Transfer Acute Care Hosp Clinical Impression: TERA (acute kidney injury), Hyperkalemia Atrial fibrillation Qualifiers: Atrial fibrillation type: unspecified Qualified Code(s): I48.91 - Unspecified atrial fibrillation Pulmonary edema Qualifiers: Chronicity: acute Qualified Code(s): J81.0 - Acute pulmonary edema Condition: Serious Forms: PCP List Discharge Date/Time: 12/12/23 17:49
[2023-12-12 10:45] LABS: BASOPHILS % (AUTO) 0.2 %; HCT - HEMATOCRIT 43.3 % (37.0-47.0); HGB - HEMOGLOBIN 13.2 g/dL (12.0-16.0); LYMPHOCYTES # (AUTO) 1.2 10^3/uL (1.5-3.5); MEAN CORPUSCULAR HEMOGLOBIN 29.5 pg (27.0-31.0); MEAN CORPUSCULAR HGB CONC 30.5 g/dL (32.0-36.0); MEAN CORPUSCULAR VOLUME 96.9 fL (81.0-99.0); MEAN PLATELET VOLUME 10.9 fL (7.9-10.8); MONOCYTES # (AUTO) 0.6 10^3/uL (0.0-1.0); MONOCYTES % (AUTO) 5.2 %; NEUTROPHILS # (AUTO) 9.1 10^3/uL (1.5-6.6); NRBC ABSOLUTE COUNT (AUTO) 0.03 x10^3/uL; NUCLEATED RED BLOOD CELLS AUTO 0.3 /100WBC; PLT - PLATELET COUNT 145 10^3/uL (130-450); RED BLOOD COUNT 4.47 10^6/uL (4.20-5.40); RED CELL DISTRIBUTION WIDTH 16.6 % (12.0-15.0); WHITE BLOOD COUNT 10.9 x10^3/uL (4.8-10.8)
--- NOTE | 2023-12-12 10:51 | XRAY Report ---
PROCEDURE: Chest 1V INDICATIONS: dyspnea TECHNIQUE: One view of the chest was acquired. COMPARISON: 09/24/2023. FINDINGS: Surgical changes and devices: CABG. Lungs and pleura: Pulmonary edema. Probable minimal pleural fluid bilaterally. Patchy bibasilar atel ectasis. Mediastinum: Mediastinal contours appear normal. Cardiomegaly. Bones and chest wall: No suspicious bony lesions. Overlying soft tissues appear unremarkable. IMPRESSION: Congestive heart failure exacerbation. Reviewed by: Chris Deluca MD on 12/12/2023 10:49 AM PDT Approved by: Chris Deluca MD on 12/12/2023 10:49 AM PDT Station ID: [id number]
[2023-12-12 10:53] LABS: MAGNESIUM 2.6 mg/dL (1.7-2.3)
[2023-12-12] MEDS: IPRATROPIUM/ALBUTEROL 3 ML NEB INH STA (11:06)
[2023-12-12 11:08] LABS: ALBUMIN 3.7 g/dL (3.2-5.5); BILIRUBIN,TOTAL 1.7 mg/dL (0.2-1.0); CALCIUM 9.7 mg/dL (8.5-10.3); CREATININE 2.2 mg/dL (0.6-1.3); TOTAL PROTEIN 7.5 g/dL (6.4-8.9)
[2023-12-12] MEDS: FUROSEMIDE 20 MG/2 ML VIAL IVP STA (11:36)
[2023-12-12] MEDS: SODIUM ZIRCONIUM CYCLOSILICATE 5 GM PACKET PO STA (11:36)
[2023-12-12 11:55] LABS: PT - PROTHROMBIN TIME 20.6 secs (9.9-12.6)
[2023-12-12] MEDS: DOBUTamine 500 MG/250 ML 500 MG/250 ML BAG IV STA (13:01)
--- NOTE | 2023-12-12 13:01 | CT Report ---
PROCEDURE: Head WO INDICATIONS: ams TECHNIQUE: Noncontrast 4.5 mm thick angled axial sections acquired from the foramen magnum to the vertex. For r adiation dose reduction, the following was used: automated exposure control, adjustment of mA and/or kV according to patient size. COMPARISON: 04/17/2022 FINDINGS: Image quality: Diagnostic CSF spaces: Basal cisterns are patent. Lateral ventricles are symmetric. Volume: Vascular calcifications. Periventricular white matter disease is commonly seen with chronic m icroangiopathy. Volume loss is present. These findings are moderate. Brain: No gross loss of hunter-white differentiation. No acute hematoma. Craniofacial structures: No significant paranasal sinus opacity. IMPRESSION: No acute intracranial abnormality. If there is high concern for parenchymal pathology, consider furth er evaluation with MRI. Reviewed by: Mikal Bella MD on 12/12/2023 12:59 PM PDT Approved by: Mikal Bella MD on 12/12/2023 12:59 PM PDT Station ID: [id number]
--- NOTE | 2023-12-12 13:05 | CT Report ---
PROCEDURE: Abdomen/Pelvis WO INDICATIONS: abd pain, renal failure TECHNIQUE: A CT scan of the abdomen and pelvis was performed without the use of intravenous contrast. Images we re recorded and evaluated at appropriate window settings. Reformats: coronal and sagittal. For radiat ion dose reduction, the following was used: automated exposure control, adjustment of mA and/or kV ac cording to patient size. COMPARISON: 12/23/2018 FINDINGS: Image quality: Motion degraded Lower chest: Mild lower lung opacities and atelectasis. No drainable effusions. Cardiomegaly is parti ally seen. Aortic and valvular and coronary calcifications Liver: Solid organs are poorly evaluated without IV contrast. No contour deforming mass. Gallbladder and biliary system: Not well assessed.Distention and small gallstones versus artifact No gross dilation Pancreas: Atrophic, duct is not well seen Spleen: Nonenlarged Adrenals: No discrete nodules Kidneys: No contour deforming mass or large hydronephrosis Vessels and lymph nodes: Abdominal aortic aneurysm is larger than prior, with areas of fissuring calc ified plaque and ulcerations present. Present on this limited noncontrast imaging. AP dimension is 5 cm. Multifocal areas of aneurysmal dilation are seen. No pathologic lymph nodes by size criteria Bowel and peritoneum: No evidence of small bowel obstruction or pathologic ascites. Small amount pelvic free fluid is present, nonspecific. Body wall: Unremarkable Pelvis: Bladder is unremarkable. Reproductive organs are unremarkable on limited CT evaluation Bones: There are degenerative changes, no acute or suspicious findings. IMPRESSION: Increased multifocal abdominal aortic aneurysm measuring up to 5 cm in AP dimension, with presumed ar eas of fissuring plaque and ulcerations on this noncontrast study. Vascular consultation is suggested . Mild lower lung opacities and atelectasis likely infectious/inflammatory. Partially seen cardiomegaly . Possible gallbladder distention and small gallstones versus artifact. Other findings above. Very limited noncontrast motion degraded CT. Reviewed by: Mikal Bella MD on 12/12/2023 1:04 PM PDT Approved by: Mikal Bella MD on 12/12/2023 1:04 PM PDT Station ID: [id number]
[2023-12-12] MEDS: DIGOXIN 500 MCG/2 ML AMP IVP STA (13:16)
[2023-12-12] MEDS: cefuroxime axetiL 250 MG TABLET PO STA (13:16)
[2023-12-12 14:36] LABS: CALCIUM 9.5 mg/dL (8.5-10.3); POTASSIUM 5.2 mmol/L (3.5-4.5); TROPONIN I HIGH SENSITIVITY 104.5 ng/L (2.3-14.8)
[2023-12-12 14:41] LABS: CREATININE 2.1 mg/dL (0.6-1.3)
[2023-12-12 17:40] VITALS: BP 103/67; O2SAT 96
== END 2023-12-12 17:49 | disposition short-term general hospital (02) ==
LOC: ED 10:09
DX: N17.9 Acute kidney failure, unspecified (principal); E87.5 Hyperkalemia; I48.91 Unspecified atrial fibrillation; J81.0 Acute pulmonary edema; F03.90 Unspecified dementia, unspecified severity, without behavioral disturbance, psychotic disturbance, mood disturbance, and anxiety; R10.30 Lower abdominal pain, unspecified; I11.0 Hypertensive heart disease with heart failure; I50.9 Heart failure, unspecified; E78.00 Pure hypercholesterolemia, unspecified; I25.2 Old myocardial infarction; E11.9 Type 2 diabetes mellitus without complications; Z79.899 Other long term (current) drug therapy; Z79.82 Long term (current) use of aspirin; Z79.84 Long term (current) use of oral hypoglycemic drugs; Z87.891 Personal history of nicotine dependence
CPT/HCPCS: 36415; 70450; 71045; 74176; 80048; 80053; 82746; 83735; 83880; 84484; 85025; 85610; 93005; 94640; 94664; 96374; 96375; 99291; J1250